=== PATIENT | female | born 1995 | race Caucasian/White ===

== ENCOUNTER 2018-11-13 18:52 | Inpatient (IN) ==
[2018-11-13] MEDS ORDERED: OXYTOCIN 30 UNITS/500 ML BAG IV PRN (19:28)
--- NOTE | 2018-11-13 19:36 | Obstetrical Progress Note ---
Date of Service November 13, 2018 Subjective Admit Note 23 F P0010 at 39.6 weeks admitted in labor. FHT Cat 1. GBS is negative. Cervix 4/100/-2/membranes bulging/anterior/soft. EFW 7.5 lbs. Patient planning for epidural. Anticipate normal delivery. Results & Data Vital Signs (Past 12 Hours) Vital Signs Temp Pulse Resp BP 11/13/18 19:04 36.5 C 85 20 129/84 11/13/18 19:02 85 129/84
[2018-11-13 20:10] LABS: Hematocrit (blood only) 32.9 % (37-47); Hemoglobin 11.3 g/dL (12.0-16.0); Mean Corpuscular Volume 67.4 fL (80-100); Platelet Count 299 K/uL (130-400); RDW Coefficient of Variation 19.5 % (11.5-14.5); RDW Standard Deviation 47.4 fL (36.4-46.3); Red Blood Count 4.88 M/uL (4.2-5.4); White Blood Count 9.69 K/uL (4.8-10.8)
[2018-11-13 20:15] LABS: Mean Corpuscular Hgb Conc 34.3 g/dL (32-36)
[2018-11-13] MEDS: LACTATED RINGER'S 1,000 ML IV PRN ×2 (20:20→22:31)
--- NOTE | 2018-11-13 21:08 | Anesthesiology Consultation ---
Date of Service November 13, 2018 Assessment & Plan (1) Encounter for pre-operative examination: Chart Review Chart Review: Acceptable Risk for Labor Epidural Consults Requested none ASA ASA2 Proposed Anesthesia Anesthesia Type: Labor Epidural Risk / Benefits Reviewed With: PT / POA / Parent / Guardian, Accepts Plan and Informed Consent Obtained History Height/Weight Height: 5 ft 3 in Weight: 74.843 kg Allergies Allergy/AdvReac Type Severity Reaction Status Date / Time pollen extracts Allergy Sneezing Verified 11/13/18 00:53 Medications Home Medications Medication Instructions Recorded Confirmed Last Taken PNV cmb#95-ferrous fumarate-FA 1 tab PO DAILY 11/13/18 11/13/18 11/13/18 [] ferrous sulfate [iron] 325 mg PO DAILY 11/13/18 11/13/18 11/13/18 Active Medications Generic Name Dose Route Start Last Admin Trade Name Freq PRN Reason Stop Dose Admin Lactated Ringer's 1,000 mls @ 125 mls/hr 11/13/18 19:28 11/13/18 20:20 Lr IV 11/15/18 19:27 999 mls/hr .Q8H PRN Administration L&D Protocol Protocol Past Medical History Medical History No significant past medical history Exercise / Class Metabolic Activity II 4-5 Yardwork/Stairs/Walk up hill Past Surgical History Surgical History No significant past surgical history Past Anesthesia History No Hx of Anesthesia Complications and No Family Hx of Anesthesia Complications History of PONV No Hx of PONV and No Hx of Motion Sickness Social History Smoking Status: Never smoker Hx Alcohol Use: No Hx Substance Use: No Physical Exam Vital Signs Last Vital Signs Temp 97.7 F 11/13/18 19:04 Pulse 85 11/13/18 19:04 Resp 20 11/13/18 19:04 BP 129/84 11/13/18 19:04 ENMT Mouth: no dentition abnormality Thyromental Distance: > or= 3.5 Finger Breadths Mallampati Class: II Neck normal visual inspection Respiratory normal respiratory effort Auscultation: lungs clear to auscultation bilaterally Cardiovascular Rate/Rhythm: regular rate and regular rhythm
[2018-11-13] MEDS ORDERED: ePHEDrine sulfate 50 MG/ML AMP IV PRN (21:10)
[2018-11-13] MEDS ORDERED: ONDANSETRON INJ 2 MG/ML 2 ML VIAL IV PRN (21:10)
[2018-11-13] MEDS ORDERED: NALBUPHINE HCL INJ 10 MG/ML AMP IV PRN (21:10)
[2018-11-13] MEDS ORDERED: LACTATED RINGER'S 1,000 ML IV PRN (21:10)
[2018-11-13] MEDS ORDERED: NALOXONE HCL 1 MG in SODIUM CHLORIDE 0.9% 1000ML 1,000 ML IV PRN (21:10)
[2018-11-13] MEDS ORDERED: NALOXONE HCL 0.4 MG/1 ML VIAL/CARP IV PRN (21:10)
[2018-11-13] MEDS ORDERED: DiphenhydrAMINE HCL 50 MG/ML VIAL IV PRN (21:10)
[2018-11-13] MEDS ORDERED: ePHEDrine sulfate 50 MG/ML AMP ONE (21:11)
[2018-11-13] MEDS ORDERED: BUPIVACAINE 0.25% 30 ML VIAL ONE (21:11)
[2018-11-13] MEDS ORDERED: fentaNYL citrate 100 MCG/2 ML VIAL ONE (21:11)
[2018-11-13] MEDS ORDERED: fentaNYL 2MCG/ML ROPIV 1.25MG/ML 100 ML BAG EPI ONE (21:12)
[2018-11-13] MEDS: fentaNYL 2MCG/ML ROPIV 1.25MG/ML 100 ML BAG EPI PRN (21:34)
--- NOTE | 2018-11-13 23:02 | Obstetrical Progress Note ---
Date of Service November 13, 2018 Subjective no pain now after epidural Physical Exam Constitutional: WD/WN, vitals as above comfortable Genitourinary: Manual OB Exam: + cervical dilation 5 cm, + cervical effacement 100%, + station and + amniotic fluid clear OB Exam Monitor Tracing: + external FHT monitor used, + external uterine monitor used and + category I (AROM with amni hook clear fluid) Results & Data Vital Signs (Past 12 Hours) Vital Signs Temp Pulse Resp BP Pulse Ox 11/13/18 22:58 68 96 11/13/18 22:53 77 97 11/13/18 22:48 78 97 11/13/18 22:46 81 121/76 11/13/18 22:43 79 97 11/13/18 22:38 71 97 11/13/18 22:33 77 96 11/13/18 22:32 81 111/72 11/13/18 22:28 84 96 11/13/18 22:23 74 97 11/13/18 22:18 78 97 11/13/18 22:16 82 118/79 11/13/18 22:13 74 98 11/13/18 22:08 76 98 11/13/18 22:03 81 97 11/13/18 22:02 82 119/76 11/13/18 21:58 72 97 11/13/18 21:53 83 98 11/13/18 21:48 80 98 11/13/18 21:46 71 118/78 11/13/18 21:44 88 115/78 11/13/18 21:43 81 96 11/13/18 21:42 82 115/78 11/13/18 21:40 106 H 116/73 11/13/18 21:38 90 108/70 97 11/13/18 21:36 85 106/60 11/13/18 21:34 85 111/65 11/13/18 21:33 82 97 11/13/18 21:28 74 97 11/13/18 21:23 82 98 11/13/18 21:18 87 97 11/13/18 19:04 36.5 C 85 20 129/84 11/13/18 19:02 85 129/84
[2018-11-14] MEDS: fentaNYL 2MCG/ML ROPIV 1.25MG/ML 100 ML BAG EPI PRN ×2 (05:23→11:12)
[2018-11-14] MEDS: LACTATED RINGER'S 1,000 ML IV PRN (06:19)
[2018-11-14] MEDS ORDERED: TERBUTALINE SULFATE 1 MG/ML VIAL ONE (07:32)
--- NOTE | 2018-11-14 08:05 | Labor Progress Brief Note ---
Date of Service November 14, 2018 VE: 10 cm/100/+1 FHR: variables with loss of tracing during exam Position changed done' IVF and oxygen given Terbutaline given SQ scalp electrode placed Pt in knee -chest position FHR is now back to baseline nadir continue to monitor pt and fetus Results & Data Vital Signs (Past 12 Hours) Vital Signs Temp Pulse Resp BP Pulse Ox 11/14/18 08:01 115 H 92 11/14/18 07:58 108 H 100 11/14/18 07:54 114 H 93 11/14/18 07:53 116 H 98 11/14/18 07:48 111 H 93 11/14/18 07:46 123 H 141/63 H 11/14/18 07:43 109 H 98 11/14/18 07:38 106 H 99 11/14/18 07:33 104 H 98 11/14/18 07:32 120 H 160/88 H 11/14/18 07:28 97 H 100 11/14/18 07:26 85 94 11/14/18 07:23 76 97 11/14/18 07:20 82 93 11/14/18 07:18 72 99 11/14/18 07:17 73 113/78 11/14/18 07:13 76 98 11/14/18 07:08 66 98 11/14/18 07:03 78 99 11/14/18 07:02 36.8 C 73 18 116/77 11/14/18 06:58 74 98 11/14/18 06:53 78 99 11/14/18 06:51 78 93 11/14/18 06:48 67 99 11/14/18 06:47 72 120/80 11/14/18 06:43 80 98 11/14/18 06:38 77 98 11/14/18 06:33 73 97 11/14/18 06:31 68 112/76 11/14/18 06:28 75 97 11/14/18 06:23 66 98 11/14/18 06:18 71 98 11/14/18 06:16 66 112/74 11/14/18 06:13 72 99 11/14/18 06:08 62 98 11/14/18 06:03 67 99 11/14/18 06:01 73 110/70 11/14/18 05:58 77 99 11/14/18 05:53 73 98 05 05:48 65 98 05 05:46 66 110/69 05 05:43 76 99 05 05:38 67 99 05 05:33 72 99 05 05:32 66 116/82 05 05:28 73 98 05 05:23 75 98 05 05:18 69 99 05 05:16 78 124/68 05 05:13 84 100 05 05:09 82 92 05 05:08 87 96 05 05:03 70 99 05 05:01 36.8 C 75 18 120/73 05 04:58 66 99 05 04:53 63 99 11/14/18 04:48 68 99 05 04:43 76 98 11/14/18 04:38 62 98 05 04:33 61 98 11/14/18 04:32 60 108/72 05 04:28 69 98 11/14/18 04:23 56 L 98 11/14/18 04:18 69 97 05 04:16 58 L 105/71 11/14/18 04:13 68 98 11/14/18 04:08 68 98 11/14/18 04:03 76 98 11/14/18 04:02 65 124/102 H 11/14/18 03:58 61 98 05 03:53 67 99 05 03:48 61 97 11/14/18 03:46 57 L 103/65 05 03:43 56 L 98 05 03:38 58 L 98 05 03:33 62 97 05 03:32 67 106/67 05 03:28 67 97 05 03:23 79 98 05 03:18 72 97 05 03:16 57 L 102/65 05 03:13 66 98 05 03:08 57 L 97 11/14/18 03:03 57 L 98 11/14/18 03:02 54 L 109/73 05 03:00 36.5 C 05/20/19 02:58 70 97 0520/19 02:53 62 98 0520/19 02:48 61 97 0520/ 02:47 51 L 105/67 0520/19 02:43 60 97 0520/ 02:38 70 98 0520/19 02:33 64 98 0520/ 02:31 67 103/73 0520/ 02:28 69 98 20 02:23 57 L 98 0520/ 02:18 67 97 0520/ 02:16 63 105/64 0520/19 02:13 64 98 0520 02:08 70 98 0520 02:03 64 98 11/14/18 02:01 60 106/67 0520/19 01:58 76 98 0520/ 01:53 72 97 0520/ 01:48 73 97 05 01:47 67 95/64 L 11/14/18 01:43 65 97 0520/19 01:38 71 97 0520/19 01:33 61 97 05/20/19 01:31 67 103/64 0520/19 01:28 76 97 0520/19 01:23 83 97 0520/19 01:18 62 97 0520/19 01:17 73 104/68 0520/19 01:13 75 96 0520/19 01:08 78 97 0520/19 01:03 78 96 0520/19 01:02 57 L 102/61 0520/19 00:58 68 96 05/20/19 00:53 71 97 05/20/19 00:48 87 96 05/20/19 00:46 36.7 C 78 18 105/73 0520/19 00:43 79 96 05/20/19 00:38 63 97 05/20/19 00:33 68 96 05/20/19 00:31 64 106/68 05/20/19 00:28 81 97 05/20/19 00:23 82 97 05/20/19 00:18 80 107/72 96 0520/19 00:13 77 97 0520/19 00:08 75 97 05/20/19 00:03 75 97 05/ 00:02 75 115/73 05//19 23:58 76 97 05/19 23:53 75 97 05/19 23:48 60 97 0519 23:47 61 117/75 05/19 23:43 77 97 05/ 23:38 69 97 05/19 23:33 78 97 05 23:31 80 113/70 0519 23:28 76 96 05 23:23 81 97 05/19 23:18 83 97 05/ 23:16 77 114/69 05/19 23:13 84 97 05 23:08 74 96 05 23:03 79 97 05 23:02 36.6 C 73 18 117/75 05 22:58 68 96 05 22:53 77 97 05 22:48 78 97 05 22:46 81 121/76 05 22:43 79 97 0519 22:38 71 97 05 22:33 77 96 0519 22:32 81 111/72 05 22:28 84 96 05 22:23 74 97 05 22:18 78 97 0519 22:16 82 118/79 05 22:13 74 98 05 22:08 76 98 05 22:03 81 97 05 22:02 82 119/76 0519 21:58 72 97 0519 21:53 83 98 0519 21:48 80 98 05//19 21:46 71 118/78 0519 21:44 88 115/78 0519 21:43 81 96 0519 21:42 82 115/78 05/19 21:40 106 H 116/73 0519 21:38 90 108/70 97 05//19 21:36 85 106/60 0519/19 21:34 85 111/65 05/19 21:33 82 97 0519 21:28 74 97 05//19 21:23 82 98 11/13/18 21:18 87 97
[2018-11-14] MEDS ORDERED: BENZOCAINE 20% AER SPR 82.5 GM CAN EXT PRN (13:04)
[2018-11-14] MEDS ORDERED: OXYTOCIN 30 UNITS/500 ML BAG IV PRN (13:04)
[2018-11-14] MEDS ORDERED: HYDROCORTISONE ACETATE 25 MG SUPP PR PRN (13:04)
[2018-11-14] MEDS ORDERED: ACETAMINOPHEN 325 MG TAB PO PRN (13:04)
[2018-11-14] MEDS ORDERED: BISACODYL 10 MG SUPP PR PRN (13:04)
[2018-11-14] MEDS ORDERED: SUPERCREAM 0.870% 15 GM JAR EXT PRN (13:04)
[2018-11-14] MEDS ORDERED: DIPHTHERIA/TETANUS/PERTUSSIS 0.5 ML SYR/VIAL IM ONE (13:04)
[2018-11-14] MEDS ORDERED: miSOPROStol 200 MCG TAB PR ONE (13:04)
--- NOTE | 2018-11-14 13:04 | Labor Progress Brief Note ---
Results & Data Vital Signs (Past 12 Hours) Vital Signs Temp Pulse Resp BP Pulse Ox 11/14/18 13:01 105 H 112/75 11/14/18 13:00 122 H 116/67 11/14/18 12:55 103 H 134/81 11/14/18 12:50 114 H 135/74 11/14/18 12:45 116 H 131/83 89 L 11/14/18 12:43 100 H 64 L 11/14/18 12:40 106 H 93 11/14/18 12:38 96 H 100 11/14/18 12:34 88 91 11/14/18 12:33 101 H 100 11/14/18 12:30 127 H 116/69 11/14/18 12:29 92 H 93 11/14/18 12:28 90 93 11/14/18 12:23 97 H 100 11/14/18 12:18 114 H 100 11/14/18 12:13 88 100 11/14/18 12:11 106 H 142/72 H 11/14/18 12:10 101 H 93 11/14/18 12:08 104 H 79 L 11/14/18 12:05 122 H 116/65 86 L 11/14/18 12:03 107 H 100 11/14/18 12:00 37.0 C 84 18 135/63 11/14/18 11:58 85 97 11/14/18 11:57 103 H 128/66 11/14/18 11:53 91 H 97 11/14/18 11:51 96 H 114/78 11/14/18 11:48 86 100 11/14/18 11:47 83 91 11/14/18 11:45 81 106/70 11/14/18 11:43 92 H 90 11/14/18 11:42 99 H 89 L 11/14/18 11:39 77 88/51 L 11/14/18 11:38 79 100 11/14/18 11:35 75 86/52 L 11/14/18 11:33 76 100 11/14/18 11:29 77 94/52 L 11/14/18 11:28 86 100 11/14/18 11:24 74 91/54 L 11/14/18 11:23 69 100 11/14/18 11:20 75 91/51 L 11/14/18 11:18 95 H 100 05/20/19 11:14 74 93/54 L 05/20/19 11:13 74 100 05/20/19 11:09 93 H 97/57 L 05/20/19 11:08 77 100 05/20/19 11:05 88 93/60 L 05/20/19 11:03 82 100 05/20/19 11:01 84 91 05/20/19 11:00 87 115/70 05/20/19 10:58 106 H 100 05/20/19 10:54 92 H 125/75 05/20/19 10:53 99 H 100 05/20/19 10:50 97 H 121/75 05/20/19 10:48 92 H 100 05/20/19 10:44 105 H 114/76 05/20/19 10:43 94 H 100 05/20/19 10:39 93 H 113/73 05/20/19 10:38 94 H 100 05/20/19 10:36 89 112/70 05/20/19 10:33 94 H 100 05/20/19 10:31 85 116/67 05/20/19 10:30 96 H 91 05/20/19 10:28 96 H 99 05/20/19 10:25 36.5 C 96 H 18 104/66 05/20/19 10:23 96 H 100 05/20/19 10:21 87 112/69 05/20/19 10:18 91 H 100 05/20/19 10:16 96 H 112/66 05/20/19 10:14 100 H 92 05/20/19 10:13 96 H 100 05/20/19 10:09 93 H 112/64 05/20/19 10:08 88 100 05/20/19 10:06 90 110/67 05/20/19 10:03 88 100 05/20/19 10:00 96 H 109/71 05/20/19 09:58 91 H 100 05/20/19 09:55 98 H 108/69 05/20/19 09:53 92 H 100 05/20/19 09:51 92 H 111/70 05/20/19 09:50 106 H 91 05/20/19 09:48 99 H 100 05/20/19 09:44 92 H 95/50 L 05/20/19 09:43 94 H 100 05/20/19 09:41 93 H 99/53 L 11/14/18 09:40 92 H 99/52 L 05 09:38 89 100 05 09:34 90 103/52 L 11/14/18 09:33 95 H 99/50 L 100 11/14/18 09:29 98 H 105/59 L 11/14/18 09:28 94 H 104/57 L 100 11/14/18 09:24 90 97/52 L 11/14/18 09:23 96 H 100 11/14/18 09:21 92 H 98/54 L 11/14/18 09:18 91 H 100 11/14/18 09:16 91 H 114/66 11/14/18 09:14 92 H 113/66 11/14/18 09:13 94 H 100 11/14/18 09:10 88 120/71 11/14/18 09:09 94 H 89 L 11/14/18 09:08 93 H 98 11/14/18 09:03 94 H 100 11/14/18 09:01 132/89 05 08:58 104 H 100 11/14/18 08:53 98 H 99 11/14/18 08:52 100 H 91 11/14/18 08:48 92 H 100 11/14/18 08:46 96 H 126/84 11/14/18 08:43 100 H 100 05 08:38 107 H 100 05 08:33 100 H 99 05 08:32 97 H 117/73 05 08:28 100 H 100 11/14/18 08:23 87 99 05 08:18 98 H 99 05 08:17 99 H 113/71 05 08:13 95 H 99 05 08:08 82 100 05 08:04 103 H 132/78 05 08:03 104 H 100 05 08:01 115 H 92 05 07:58 108 H 100 05 07:54 114 H 93 0520 07:53 116 H 98 05 07:48 111 H 93 11/14/18 07:46 123 H 141/63 H 05/20/19 07:43 109 H 98 05/20/19 07:38 106 H 99 05/20/19 07:33 104 H 98 05/20/19 07:32 120 H 160/88 H 05/20/19 07:28 97 H 100 05/20/19 07:26 85 94 05/20/19 07:23 76 97 05/20/19 07:20 82 93 05/20/19 07:18 72 99 05/20/19 07:17 73 113/78 05/20/19 07:13 76 98 05/20/19 07:08 66 98 05/20/19 07:03 78 99 05/20/19 07:02 36.8 C 73 18 116/77 05/20/19 06:58 74 98 05/20/19 06:53 78 99 05/20/19 06:51 78 93 05/20/19 06:48 67 99 05/20/19 06:47 72 120/80 05/20/19 06:43 80 98 05/20/19 06:38 77 98 05/20/19 06:33 73 97 05/20/19 06:31 68 112/76 05/20/19 06:28 75 97 05/20/19 06:23 66 98 05/20/19 06:18 71 98 05/20/19 06:16 66 112/74 05/20/19 06:13 72 99 05/20/19 06:08 62 98 05/20/19 06:03 67 99 05/20/19 06:01 73 110/70 05/20/19 05:58 77 99 05/20/19 05:53 73 98 05/20/19 05:48 65 98 05/20/19 05:46 66 110/69 05/20/19 05:43 76 99 05/20/19 05:38 67 99 05/20/19 05:33 72 99 05/20/19 05:32 66 116/82 05/20/19 05:28 73 98 05/20/19 05:23 75 98 05/20/19 05:18 69 99 05/20/19 05:16 78 124/68 05/20/19 05:13 84 100 05/20/19 05:09 82 92 05/20/19 05:08 87 96 05/20/19 05:03 70 99 05/20/19 05:01 36.8 C 75 18 120/73 11/14/18 04:58 66 99 11/14/18 04:53 63 99 11/14/18 04:48 68 99 11/14/18 04:43 76 98 11/14/18 04:38 62 98 11/14/18 04:33 61 98 11/14/18 04:32 60 108/72 11/14/18 04:28 69 98 11/14/18 04:23 56 L 98 11/14/18 04:18 69 97 11/14/18 04:16 58 L 105/71 11/14/18 04:13 68 98 11/14/18 04:08 68 98 11/14/18 04:03 76 98 11/14/18 04:02 65 124/102 H 11/14/18 03:58 61 98 11/14/18 03:53 67 99 11/14/18 03:48 61 97 11/14/18 03:46 57 L 103/65 11/14/18 03:43 56 L 98 11/14/18 03:38 58 L 98 11/14/18 03:33 62 97 11/14/18 03:32 67 106/67 11/14/18 03:28 67 97 11/14/18 03:23 79 98 11/14/18 03:18 72 97 11/14/18 03:16 57 L 102/65 11/14/18 03:13 66 98 11/14/18 03:08 57 L 97 11/14/18 03:03 57 L 98 11/14/18 03:02 54 L 109/73 11/14/18 03:00 36.5 C 11/14/18 02:58 70 97 11/14/18 02:53 62 98 11/14/18 02:48 61 97 11/14/18 02:47 51 L 105/67 11/14/18 02:43 60 97 11/14/18 02:38 70 98 11/14/18 02:33 64 98 11/14/18 02:31 67 103/73 11/14/18 02:28 69 98 11/14/18 02:23 57 L 98 11/14/18 02:18 67 97 11/14/18 02:16 63 105/64 11/14/18 02:13 64 98 11/14/18 02:08 70 98 05/ 02:03 64 98 05/20 02:01 60 106/67 0520 01:58 76 98 05 01:53 72 97 05 01:48 73 97 05 01:47 67 95/64 L 05 01:43 65 97 05 01:38 71 97 05 01:33 61 97 05 01:31 67 103/64 05 01:28 76 97 05 01:23 83 97 05 01:18 62 97 05 01:17 73 104/68 05 01:13 75 96 05 01:08 78 97 05 01:03 78 96
[2018-11-14] MEDS ORDERED: miSOPROStol 200 MCG TAB ONE ×2 (13:11→13:13)
[2018-11-14] MEDS: IBUPROFEN 600 MG TAB PO PRN ×2 (13:45→19:11)
[2018-11-14 13:55] LABS: Base Excess Cord Arterial Bld -8.6 mEq/L (-9-1.8); CO2 Cord Arterial Blood 54 mmHg (39.1-73.5); HCO3 Cord Arterial Blood 20 mmol/L (19.7-28.5); PO2 Cord Arterial Blood 13.5 % (4.1-31.7); pH Cord Arterial Blood 7.19 (7.1-7.38)
--- NOTE | 2018-11-14 13:58 | Anesthesia Procedure Note ---
Date of Service November 14, 2018 Anesthesia Post Epidural Note Vital Signs Vital Signs: Temp Pulse Resp BP Pulse Ox 11/14/18 13:39 106 H 158/88 H 11/14/18 13:36 100 H 159/81 H 11/14/18 13:29 100 H 161/69 H 11/14/18 13:10 120 H 115/60 11/14/18 13:05 92 H 118/70 11/14/18 13:01 105 H 112/75 11/14/18 13:00 37.3 C 122 H 18 116/67 11/14/18 12:55 103 H 134/81 11/14/18 12:50 114 H 135/74 11/14/18 12:45 116 H 131/83 89 L 11/14/18 12:43 100 H 64 L 11/14/18 12:40 106 H 93 11/14/18 12:38 96 H 100 11/14/18 12:34 88 91 11/14/18 12:33 101 H 100 11/14/18 12:30 127 H 116/69 11/14/18 12:29 92 H 93 11/14/18 12:28 90 93 11/14/18 12:23 97 H 100 11/14/18 12:18 114 H 100 11/14/18 12:13 88 100 11/14/18 12:11 106 H 142/72 H 11/14/18 12:10 101 H 93 11/14/18 12:08 104 H 79 L 11/14/18 12:05 122 H 116/65 86 L 11/14/18 12:03 107 H 100 11/14/18 12:00 37.0 C 84 18 135/63 11/14/18 11:58 85 97 11/14/18 11:57 103 H 128/66 11/14/18 11:53 91 H 97 11/14/18 11:51 96 H 114/78 11/14/18 11:48 86 100 11/14/18 11:47 83 91 11/14/18 11:45 81 106/70 11/14/18 11:43 92 H 90 11/14/18 11:42 99 H 89 L 11/14/18 11:39 77 88/51 L 11/14/18 11:38 79 100 11/14/18 11:35 75 86/52 L 05/20/19 11:33 76 100 05/20/19 11:29 77 94/52 L 05/20/19 11:28 86 100 05/20/19 11:24 74 91/54 L 05/20/19 11:23 69 100 05/20/19 11:20 75 91/51 L 05/20/19 11:18 95 H 100 05/20/19 11:14 74 93/54 L 0520/ 11:13 74 100 05/20/ 11:09 93 H 97/57 L 0520/ 11:08 77 100 05/20 11:05 88 93/60 L 0520/ 11:03 82 100 05/20/ 11:01 84 91 05/20/ 11:00 87 115/70 05/20/ 10:58 106 H 100 05/20/19 10:54 92 H 125/75 05/20/19 10:53 99 H 100 05/20/19 10:50 97 H 121/75 05/20/19 10:48 92 H 100 05/20/19 10:44 105 H 114/76 05/20/19 10:43 94 H 100 05/20/19 10:39 93 H 113/73 05/20/19 10:38 94 H 100 05/20/19 10:36 89 112/70 05/20/19 10:33 94 H 100 05/20/19 10:31 85 116/67 05/20/19 10:30 96 H 91 05/20/19 10:28 96 H 99 05/20/19 10:25 36.5 C 96 H 18 104/66 05/20/19 10:23 96 H 100 05/20/19 10:21 87 112/69 05/20/19 10:18 91 H 100 05/20/19 10:16 96 H 112/66 05/20/19 10:14 100 H 92 05/20/19 10:13 96 H 100 05/20/19 10:09 93 H 112/64 05/20/19 10:08 88 100 05/20/19 10:06 90 110/67 05/20/19 10:03 88 100 05/20/19 10:00 96 H 109/71 05/20/19 09:58 91 H 100 05/20/19 09:55 98 H 108/69 05/20/19 09:53 92 H 100 11/14/18 09:51 92 H 111/70 11/14/18 09:50 106 H 91 11/14/18 09:48 99 H 100 11/14/18 09:44 92 H 95/50 L 11/14/18 09:43 94 H 100 11/14/18 09:41 93 H 99/53 L 11/14/18 09:40 92 H 99/52 L 11/14/18 09:38 89 100 11/14/18 09:34 90 103/52 L 11/14/18 09:33 95 H 99/50 L 100 11/14/18 09:29 98 H 105/59 L 11/14/18 09:28 94 H 104/57 L 100 11/14/18 09:24 90 97/52 L 11/14/18 09:23 96 H 100 11/14/18 09:21 92 H 98/54 L 11/14/18 09:18 91 H 100 11/14/18 09:16 91 H 114/66 11/14/18 09:14 92 H 113/66 11/14/18 09:13 94 H 100 11/14/18 09:10 88 120/71 11/14/18 09:09 94 H 89 L 11/14/18 09:08 93 H 98 11/14/18 09:03 94 H 100 11/14/18 09:01 132/89 11/14/18 08:58 104 H 100 11/14/18 08:53 98 H 99 11/14/18 08:52 100 H 91 11/14/18 08:48 92 H 100 11/14/18 08:46 96 H 126/84 05 08:43 100 H 100 05 08:38 107 H 100 05 08:33 100 H 99 11/14/18 08:32 97 H 117/73 05 08:28 100 H 100 05 08:23 87 99 05 08:18 98 H 99 11/14/18 08:17 99 H 113/71 05 08:13 95 H 99 11/14/18 08:08 82 100 05 08:04 103 H 132/78 05 08:03 104 H 100 05/20/19 08:01 115 H 92 05/20/19 07:58 108 H 100 05/20/19 07:54 114 H 93 05/20/19 07:53 116 H 98 05/20/19 07:48 111 H 93 05/20/19 07:46 123 H 141/63 H 0520/19 07:43 109 H 98 05/20/19 07:38 106 H 99 05/20/19 07:33 104 H 98 05/20/19 07:32 120 H 160/88 H 0520/19 07:28 97 H 100 05/20/19 07:26 85 94 05/20/19 07:23 76 97 05/20/19 07:20 82 93 05/20/19 07:18 72 99 05/20/19 07:17 73 113/78 05/20/19 07:13 76 98 05/20/19 07:08 66 98 05/20/19 07:03 78 99 05/20/19 07:02 36.8 C 73 18 116/77 05/20/19 06:58 74 98 05/20/19 06:53 78 99 05/20/19 06:51 78 93 05/20/19 06:48 67 99 05/20/19 06:47 72 120/80 05/20/19 06:43 80 98 05/20/19 06:38 77 98 05/20/19 06:33 73 97 05/20/19 06:31 68 112/76 05/20/19 06:28 75 97 05/20/19 06:23 66 98 05/20/19 06:18 71 98 05/20/19 06:16 66 112/74 05/20/19 06:13 72 99 05/20/19 06:08 62 98 05/20/19 06:03 67 99 05/20/19 06:01 73 110/70 05/20/19 05:58 77 99 05/20/19 05:53 73 98 05/20/19 05:48 65 98 05/20/19 05:46 66 110/69 05/20/19 05:43 76 99 05/20/19 05:38 67 99 05/20/19 05:33 72 99 05/20/19 05:32 66 116/82 05/20/19 05:28 73 98 05/20/19 05:23 75 98 05 05:18 69 99 05 05:16 78 124/68 05 05:13 84 100 11/14/18 05:09 82 92 05 05:08 87 96 11/14/18 05:03 70 99 05 05:01 36.8 C 75 18 120/73 11/14/18 04:58 66 99 11/14/18 04:53 63 99 11/14/18 04:48 68 99 11/14/18 04:43 76 98 11/14/18 04:38 62 98 11/14/18 04:33 61 98 05 04:32 60 108/72 11/14/18 04:28 69 98 05 04:23 56 L 98 11/14/18 04:18 69 97 11/14/18 04:16 58 L 105/71 11/14/18 04:13 68 98 11/14/18 04:08 68 98 11/14/18 04:03 76 98 11/14/18 04:02 65 124/102 H 11/14/18 03:58 61 98 11/14/18 03:53 67 99 11/14/18 03:48 61 97 11/14/18 03:46 57 L 103/65 11/14/18 03:43 56 L 98 11/14/18 03:38 58 L 98 11/14/18 03:33 62 97 11/14/18 03:32 67 106/67 11/14/18 03:28 67 97 11/14/18 03:23 79 98 11/14/18 03:18 72 97 11/14/18 03:16 57 L 102/65 11/14/18 03:13 66 98 11/14/18 03:08 57 L 97 11/14/18 03:03 57 L 98 11/14/18 03:02 54 L 109/73 11/14/18 03:00 36.5 C 11/14/18 02:58 70 97 11/14/18 02:53 62 98 05 02:48 61 97 11/14/18 02:47 51 L 105/67 11/14/18 02:43 60 97 11/14/18 02:38 70 98 05/20/19 02:33 64 98 05/20/19 02:31 67 103/73 05/20/19 02:28 69 98 05/20/19 02:23 57 L 98 05/20/19 02:18 67 97 05/20/19 02:16 63 105/64 05/20/19 02:13 64 98 05/20/19 02:08 70 98 05/20/19 02:03 64 98 05/20/19 02:01 60 106/67 0520/19 01:58 76 98 05/20/19 01:53 72 97 05/20/19 01:48 73 97 05/20/19 01:47 67 95/64 L 05/20/19 01:43 65 97 05/20/19 01:38 71 97 05/20/19 01:33 61 97 05/20/19 01:31 67 103/64 05/20/19 01:28 76 97 05/20/19 01:23 83 97 0520/19 01:18 62 97 0520/19 01:17 73 104/68 05/20/19 01:13 75 96 05/20/19 01:08 78 97 05/20/19 01:03 78 96 05/20/19 01:02 57 L 102/61 0520/19 00:58 68 96 05/20/19 00:53 71 97 05/20/19 00:48 87 96 05/20/19 00:46 36.7 C 78 18 105/73 05/20/19 00:43 79 96 05/20/19 00:38 63 97 05/20/19 00:33 68 96 05/20/19 00:31 64 106/68 05/20/19 00:28 81 97 05/20/19 00:23 82 97 05/20/19 00:18 80 107/72 96 05/20/19 00:13 77 97 05/20/19 00:08 75 97 05/20/19 00:03 75 97 05/20/19 00:02 75 115/73 05/19/19 23:58 76 97 05/19/19 23:53 75 97 05/19/19 23:48 60 97 05/19/19 23:47 61 117/75 05/19/19 23:43 77 97 05/19/19 23:38 69 97 05/19/19 23:33 78 97 11/13/18 23:31 80 113/70 11/13/18 23:28 76 96 11/13/18 23:23 81 97 11/13/18 23:18 83 97 11/13/18 23:16 77 114/69 11/13/18 23:13 84 97 11/13/18 23:08 74 96 11/13/18 23:03 79 97 11/13/18 23:02 36.6 C 73 18 117/75 11/13/18 22:58 68 96 11/13/18 22:53 77 97 11/13/18 22:48 78 97 11/13/18 22:46 81 121/76 11/13/18 22:43 79 97 11/13/18 22:38 71 97 11/13/18 22:33 77 96 11/13/18 22:32 81 111/72 11/13/18 22:28 84 96 11/13/18 22:23 74 97 11/13/18 22:18 78 97 11/13/18 22:16 82 118/79 11/13/18 22:13 74 98 11/13/18 22:08 76 98 11/13/18 22:03 81 97 11/13/18 22:02 82 119/76 11/13/18 21:58 72 97 11/13/18 21:53 83 98 11/13/18 21:48 80 98 11/13/18 21:46 71 118/78 11/13/18 21:44 88 115/78 11/13/18 21:43 81 96 11/13/18 21:42 82 115/78 11/13/18 21:40 106 H 116/73 11/13/18 21:38 90 108/70 97 11/13/18 21:36 85 106/60 11/13/18 21:34 85 111/65 11/13/18 21:33 82 97 11/13/18 21:28 74 97 11/13/18 21:23 82 98 11/13/18 21:18 87 97 11/13/18 19:04 36.5 C 85 20 129/84 11/13/18 19:02 85 129/84 Notes Mental Status: alert / awake / arousable and participated in evaluation Nausea / Vomiting: adequately controlled Pain: adequately controlled Airway Patency, RR, SpO2: stable & adequate BP & HR: stable & adequate Hydration State: stable & adequate Neuraxial Anesthesia: was administered and sensory block is resolving Anesthetic Complications: no major complications apparent and Pt Satisfied with anesthetic care Epidural: Removed without complications and With tip intact
[2018-11-14 13:59] LABS: Base Excess Cord Venous Blood -8.9 mEq/L (-7.7-1.9); Cord Venous Blood HCO3 18 mmol/L (18.4-26.8); Cord Venous Blood PCO2 40 mmHg (30.4-57.2); Cord Venous Blood PO2 27 mmHg (14.1-43.3); Cord Venous Blood pH 7.26 (7.20-7.44); O2 Saturation Cord Venous Bld 60.7 % (<68)
[2018-11-14] MEDS: OXYCODONE/ACETAMINOPHEN 5mg/325mg TAB PO PRN ×2 (14:37→19:11)
[2018-11-14] MEDS ORDERED: GENTAMICIN CONSULT ACTIVE PRN (17:38)
[2018-11-14] MEDS ORDERED: AMPICILLIN 2,000 MG in SODIUM CHLOR 0.9% AD-VAN 100 ML IV ONE (18:15)
[2018-11-14] MEDS ORDERED: GENTAMICIN SULFATE 300 MG in DEXTROSE 5% 100 ML IV ONE (18:15)
[2018-11-14 18:21] LABS: Hemoglobin 10.7 g/dL (12.0-16.0); Mean Corpuscular Volume 68.2 fL (80-100); Platelet Count 241 K/uL (130-400); RDW Coefficient of Variation 19.6 % (11.5-14.5); RDW Standard Deviation 47.4 fL (36.4-46.3); Red Blood Count 4.69 M/uL (4.2-5.4); White Blood Count 18.17 K/uL (4.8-10.8)
[2018-11-14 18:46] LABS: Albumin Level 2.2 gm/dl (3.4-5.0); BUN Creatinine Ratio 13.6 (10-20); Calcium 9.5 mg/dl (8.5-10.1); Creatinine Clr Calc Pharmacy 83.3 ml/min; Est GFR (African American) 90.7; Est GFR (Non-African American) 78.2; Potassium 3.6 mmol/L (3.5-5.1)
[2018-11-14 18:49] LABS: Albumin Globulin Ratio 0.6 (0.9-2); Bilirubin,Total 0.6 mg/dl (0.2-1); Globulin 3.8 gm/dl (2.5-4.0)
[2018-11-14 18:55] LABS: Eosinophils # (auto) 0.02 K/uL (0-0.5); Eosinophils % (auto) 0.1 %; Immature Granulocytes # (auto) 0.06 K/uL (0.00-0.02); Immature Granulocytes % (auto) 0.3 %; Lymphocytes % (auto) 3.3 %; Mean Corpuscular Hgb Conc 33.4 g/dL (32-36); Microcytosis Present; Monocytes # (auto) 0.89 K/uL (0.11-0.59); Monocytes % (auto) 4.9 %; Neutrophils % (auto) 91.4 %
[2018-11-14] MEDS: DOCUSATE SODIUM 100 MG CAP PO SCH (19:12)
--- NOTE | 2018-11-14 22:32 | Operative Report ---
DATE OF OPERATION: 11/14/2018 DELIVERY NOTE The patient delivered a live male in left occiput anterior presentation. There was nuchal cord x3, which was cut and reduced. was delivered, placed on mother's abdomen. Cord was clamped and cut. It was known prior to delivery that meconium was present. was therefore present for delivery. Cord blood and cord gas was obtained. Placenta was spontaneously delivered. Inspection of the placenta shows a meconium stained placenta. Placenta is sent to pathology for pathologic analysis. Inspection of the perineum showed first degree laceration in the left periurethral region which is not bleeding and therefore it has not been repaired. Rest of the vaginal exam is unremarkable. The patient and mother are doing well in recovery. There was good hemostasis. Bleeding was minimal. All instruments were removed from the vagina and accounted for x2 including sponges, retractors. Baby and mother are doing well. As stated above, an EBL was 700 mL I attest to the content of the Intraoperative Record and any orders documented therein. Any exceptions are noted below. [id number]
[2018-11-14] MEDS: AMPICILLIN 1,000 MG in SODIUM CHLOR 0.9% AD-VAN 50 ML IV SCH (23:17)
[2018-11-15 01:17] LABS: Appearance Urine Clear (Clear); Bilirubin Urine Negative (Negative); Blood Urine 2+ (Negative); Color Urine Orange; Epithelial Cell Urine Auto >30 /lpf (0-5); Glucose Urine UA Negative (Negative); Ketones Urine Negative (Negative); Leukocyte Esterase Urine 1+ (Negative); Nitrite Urine Negative (Negative); Protein Urine Negative (Negative); RBC Urine Automated >30 /hpf (0-4); Specific Gravity Urine 1.018 (1.000-1.030); Urobilinogen Urine Negative (Negative); pH Urine 5.5 (4.5-7.5)
[2018-11-15 01:29] LABS: Cast Urine Automated 0 /lpf (0-5); Mucus Urine Present (None Prsent)
[2018-11-15 01:32] LABS: Bacteria Urine Automated 1+ (Negative); Calcium Oxalate Crystals Urine Present (None Prsent)
[2018-11-15] MEDS: IBUPROFEN 600 MG TAB PO PRN ×4 (03:29→20:25)
[2018-11-15] MEDS: AMPICILLIN 1,000 MG in SODIUM CHLOR 0.9% AD-VAN 50 ML IV SCH ×3 (06:44→17:38)
--- NOTE | 2018-11-15 08:21 | Obstetrical Progress Note ---
Date of Service November 15, 2018 Subjective doing well Physical Exam Constitutional: WD/WN, vitals as above comfortable Abdomen soft non-tender neg edema neg Jerman's tent d/c in AM Results & Data Vital Signs (Past 12 Hours) Vital Signs Temp Pulse Pulse Resp BP Pulse Ox 11/15/18 07:59 36.5 C 77 16 93/52 L 99 11/15/18 03:30 36.3 C L 82 18 97/62 L 98 11/14/18 23:30 36.6 C 91 H 20 99/62 L 98 11/14/18 22:30 36.7 C 11/14/18 21:30 38.1 C H 130 H 22 112/73 97 Laboratory Results Laboratory Results - last 24 hr 11/14/18 11/14/18 11/14/18 12:44 12:44 17:49 WBC 18.17 H RBC 4.69 Hgb 10.7 L Hct 32.0 L MCV 68.2 L MCH 22.8 L MCHC 33.4 RDW Std Deviation 47.4 H RDW Coeff of Sandy 19.6 H Plt Count 241 MPV 10.0 Immature Gran % (Auto) 0.3 Neut % (Auto) 91.4 Lymph % (Auto) 3.3 [place] % (Auto) 4.9 Eos % (Auto) 0.1 Baso % (Auto) 0.0 Immature Gran # (Auto) 0.06 H Neut # (Auto) 16.60 H Lymph # (Auto) 0.60 L [place] # (Auto) 0.89 H Eos # (Auto) 0.02 Baso # (Auto) 0.00 Microcytosis Present Cord ABG pH 7.19 Cord ABG pCO2 54 Cord ABG pO2 13.5 Cord ABG HCO3 20 Cord ABG Base Excess -8.6 Cord ABG O2 Sat < 60.0 Cord VBG pH 7.26 Cord VBG pCO2 40 Cord VBG pO2 27 Cord VBG HCO3 18 L Cord VBG Base Excess -8.9 L Cord VBG O2 Sat 60.7 Barometric Pressure 727.5 727.7 Blood Gas Comments PANIAGUA PANIAGUA Sodium Potassium Chloride Carbon Dioxide Anion Gap BUN Creatinine Est Cr Clr Drug Dosing Est GFR ( Amer) Est GFR (Non-Af Amer) BUN/Creatinine Ratio Glucose Calcium Total Bilirubin AST ALT Alkaline Phosphatase Total Protein Albumin Globulin Albumin/Globulin Ratio Urine Color Urine Appearance Urine pH Ur Specific [place] Urine Protein Urine Glucose (UA) Urine Ketones Urine Blood Urine Nitrite Urine Bilirubin Urine Urobilinogen Ur Leukocyte Esterase Urine WBC (Auto) Urine RBC (Auto) U Hyaline Cast (Auto) U Epithel Cells (Auto) Urine Bacteria (Auto) Ur Renal Epithelial Cell Calcium Oxalate Crystal Urine Mucus 11/14/18 11/15/18 17:49 01:00 WBC RBC Hgb Hct MCV MCH MCHC RDW Std Deviation RDW Coeff of Sandy Plt Count MPV Immature Gran % (Auto) Neut % (Auto) Lymph % (Auto) [place] % (Auto) Eos % (Auto) Baso % (Auto) Immature Gran # (Auto) Neut # (Auto) Lymph # (Auto) [place] # (Auto) Eos # (Auto) Baso # (Auto) Microcytosis Cord ABG pH Cord ABG pCO2 Cord ABG pO2 Cord ABG HCO3 Cord ABG Base Excess Cord ABG O2 Sat Cord VBG pH Cord VBG pCO2 Cord VBG pO2 Cord VBG HCO3 Cord VBG Base Excess Cord VBG O2 Sat Barometric Pressure Blood Gas Comments Sodium 136 Potassium 3.6 Chloride 106 Carbon Dioxide 20 L Anion Gap 10.0 BUN 14 Creatinine 1.00 Est Cr Clr Drug Dosing 83.3 Est GFR ( Amer) 90.7 Est GFR (Non-Af Amer) 78.2 BUN/Creatinine Ratio 13.6 Glucose 106 H Calcium 9.5 Total Bilirubin 0.6 AST 31 ALT 13 Alkaline Phosphatase 164 H Total Protein 6.0 L Albumin 2.2 L Globulin 3.8 Albumin/Globulin Ratio 0.6 L Urine Color [place] Urine Appearance Clear Urine pH 5.5 Ur Specific [place] 1.018 Urine Protein Negative Urine Glucose (UA) Negative Urine Ketones Negative Urine Blood 2+ H Urine Nitrite Negative Urine Bilirubin Negative Urine Urobilinogen Negative Ur Leukocyte Esterase 1+ H Urine WBC (Auto) 10-30 H Urine RBC (Auto) >30 H U Hyaline Cast (Auto) 0 U Epithel Cells (Auto) >30 H Urine Bacteria (Auto) 1+ H Ur Renal Epithelial Cell Not Reportable Calcium Oxalate Crystal Present A Urine Mucus Present A
[2018-11-15 08:29] LABS: Hematocrit (blood only) 29.3 % (37-47); Hemoglobin 10.1 g/dL (12.0-16.0); Mean Corpuscular Hgb Conc 34.5 g/dL (32-36); Mean Corpuscular Volume 67.5 fL (80-100); Platelet Count 233 K/uL (130-400); RDW Coefficient of Variation 19.5 % (11.5-14.5); RDW Standard Deviation 47.5 fL (36.4-46.3); Red Blood Count 4.34 M/uL (4.2-5.4)
[2018-11-15] MEDS: PRENATAL VITAMIN 1 TAB PO SCH (09:05)
[2018-11-15] MEDS: DOCUSATE SODIUM 100 MG CAP PO SCH ×2 (09:05→20:23)
[2018-11-15] MEDS ORDERED: BISACODYL 5 MG TABEC PO SCH (20:00)
[2018-11-16] MEDS: AMPICILLIN 1,000 MG in SODIUM CHLOR 0.9% AD-VAN 50 ML IV SCH (00:11)
[2018-11-16] MEDS: IBUPROFEN 600 MG TAB PO PRN ×2 (04:29→11:47)
[2018-11-16 07:59] LABS: Hematocrit (blood only) 27.8 % (37-47); Hemoglobin 9.2 g/dL (12.0-16.0)
[2018-11-16] MEDS: DOCUSATE SODIUM 100 MG CAP PO SCH (08:28)
[2018-11-16] MEDS: PRENATAL VITAMIN 1 TAB PO SCH (08:29)
--- NOTE | 2018-11-16 09:53 | Obstetrical Progress Note ---
Date of Service November 16, 2018 Physical Exam Physical Exam: abdomen soft and non tender vaginal bleeding scan to moderate ambulating well no calf tenderness cultures are no growth Results & Data Vital Signs (Past 12 Hours) Vital Signs Temp Pulse Resp BP 11/16/18 00:01 36.6 C 53 L 18 112/66
[2018-11-16] MEDS ORDERED: MEASLES, MUMPS & RUBELLA VIRUS VIAL SQ ONE (11:16)
== END 2018-11-16 13:00 | disposition home or self-care (01) | DRG 807 ==
LOC: OPB 18:52 → 4S1 18:55 → 4S2 11-14 17:46

== ENCOUNTER 2019-12-13 18:53 | Inpatient (IN) ==
[2019-12-13] MEDS ORDERED: OXYTOCIN 30 UNITS/500 ML BAG IV PRN ×2 (19:27→20:33)
[2019-12-13 19:52] LABS: Hematocrit (blood only) 33.4 % (37-47); Hemoglobin 10.8 g/dL (12.0-16.0); Mean Corpuscular Hemoglobin 22.6 pg (25-34); Mean Platelet Volume 9.6 fL (7.4-10.4); Platelet Count 285 K/uL (130-400); RDW Coefficient of Variation 20.1 % (11.5-14.5); RDW Standard Deviation 49.6 fL (36.4-46.3); Red Blood Count 4.77 M/uL (4.2-5.4); White Blood Count 10.84 K/uL (4.8-10.8)
[2019-12-13 19:55] LABS: Mean Corpuscular Hgb Conc 32.3 g/dL (32-36)
[2019-12-13] MEDS: LACTATED RINGER'S 1,000 ML IV PRN (20:45)
[2019-12-13] MEDS ORDERED: ePHEDrine sulfate 50 MG/ML AMP ONE (20:47)
[2019-12-13] MEDS ORDERED: BUPIVACAINE 0.25% 30 ML VIAL ONE (20:48)
[2019-12-13] MEDS ORDERED: fentaNYL 2MCG/ML ROPIV 1.25MG/ML 100 ML BAG EPI ONE (20:48)
[2019-12-13] MEDS ORDERED: fentaNYL citrate 100 MCG/2 ML VIAL ONE (20:48)
[2019-12-13] MEDS ORDERED: ePHEDrine sulfate 50 MG/ML AMP IV PRN (20:49)
[2019-12-13] MEDS ORDERED: NALOXONE HCL 1 MG in SODIUM CHLORIDE 0.9% 1000ML 1,000 ML IV PRN (20:49)
[2019-12-13] MEDS ORDERED: DiphenhydrAMINE HCL 50 MG/ML VIAL IV PRN (20:49)
[2019-12-13] MEDS ORDERED: NALBUPHINE HCL INJ 10 MG/ML AMP IV PRN (20:49)
[2019-12-13] MEDS ORDERED: NALOXONE HCL 0.4 MG/1 ML VIAL/CARP IV PRN (20:49)
[2019-12-13] MEDS ORDERED: fentaNYL 2MCG/ML ROPIV 1.25MG/ML 100 ML BAG EPI PRN (20:49)
--- NOTE | 2019-12-13 21:21 | Anesthesiology Consultation ---
Date of Service December 13, 2019 Assessment & Plan Chart Review Chart Review: Acceptable Risk for Labor Epidural Consults Requested none History Height/Weight Height: 5 ft 3 in Weight: 79.832 kg Allergies Allergy/AdvReac Type Severity Reaction Status Date / Time pollen extracts Allergy Sneezing Verified 07/08/19 22:55 Medications Home Medications Medication Instructions Recorded Confirmed Last Taken ferrous sulfate [iron] 0 mg PO DAILY 11/13/18 12/13/19 11/13/18 PNV [id number]-ferrous fumarate-FA 1 tab PO DAILY 07/08/19 12/13/19 12/13/19 [] Active Medications Generic Name Dose Route Start Last Admin Trade Name Freq PRN Reason Stop Dose Admin Lactated Ringer's 1,000 mls @ 125 mls/hr 12/13/19 19:27 12/13/19 20:45 Lr IV 12/15/19 19:26 999 mls/hr .Q8H PRN Administration L&D Protocol Protocol Past Medical History Medical History Anemia Past Family History Family History Mother Cancer breast and another site unknown by pt Asthma Hypertension Father Multiple sclerosis Past Surgical History Surgical History H/O removal of cyst left leg, inner thigh Social History Smoking Status: Never smoker Hx Alcohol Use: No Hx Substance Use: No Physical Exam Vital Signs Last Vital Signs Temp 37 C 12/13/19 19:25 Pulse 93 H 12/13/19 21:18 Resp 18 12/13/19 19:25 BP 113/63 12/13/19 21:18 Pulse Ox 99 12/13/19 21:14 Testing Laboratory Results 12/13/19 19:40
[2019-12-14] MEDS: LACTATED RINGER'S 1,000 ML IV PRN ×2 (00:54→03:11)
[2019-12-14] MEDS ORDERED: DIPHTHERIA/TETANUS/PERTUSSIS 0.5 ML SYR/VIAL IM ONE (03:50)
[2019-12-14] MEDS ORDERED: ACETAMINOPHEN W/CODEINE #3 1 TAB PO PRN (03:50)
[2019-12-14] MEDS ORDERED: OXYCODONE/ACETAMINOPHEN 5mg/325mg TAB PO PRN (03:50)
[2019-12-14] MEDS ORDERED: OXYTOCIN 30 UNITS/500 ML BAG IV PRN (03:50)
[2019-12-14] MEDS ORDERED: SUPERCREAM 0.870% 15 GM JAR EXT PRN (03:50)
[2019-12-14] MEDS ORDERED: HYDROCORTISONE ACETATE 25 MG SUPP PR PRN (03:50)
[2019-12-14] MEDS ORDERED: bisacodyL 10 MG SUPP PR PRN (03:50)
[2019-12-14] MEDS ORDERED: BENZOCAINE 20% AER SPR 82.5 GM CAN EXT PRN (03:50)
--- NOTE | 2019-12-14 04:39 | Operative Report (OR) ---
DATE OF OPERATION: 12/14/2019 The patient is a 24-year-old 3, para 2, 1 spontaneous AB. Blood type is B positive, group B strep negative, was admitted in active labor. On admission, she was about 5+ cm with bulging membranes with contractions. She requested epidural, got fluid loaded, got her epidural, then started Pitocin. Ruptured her membranes at about 6+ cm, fluid was clear. Kept turning up her Pitocin. She developed a good labor pattern. Then eventually we had to turn the Pitocin back a little bit because she had some coupling. Went to full dilatation, pushed out a live male infant via direct occiput anterior position over an intact perineum with about 4 pushes. There was a tight nuchal cord that had to be clamped and cut prior to delivery. Once the cord was cut, shoulders were delivered without difficulty. Suctioned the through the mouth and the nose before delivery of the body. Infant was just slightly limp at , but started to cry and move immediately without stimulation. Apgars deferred to the nurses. Cord blood was taken. With IV Pitocin running, the placenta was removed intact. Inspection of the perineum revealed everything to be intact. There were no lacerations, no bleeding. Hemostasis was good. Estimated blood loss was 200 mL. I attest to the content of the Intraoperative Record and any orders documented therein. Any exception s are noted below.
[2019-12-14] MEDS: IBUPROFEN 600 MG TAB PO PRN ×4 (05:26→21:26)
[2019-12-14] MEDS: DOCUSATE SODIUM 100 MG CAP PO SCH ×2 (07:51→21:25)
[2019-12-14] MEDS: PRENATAL VITAMIN 1 TAB PO SCH (07:51)
[2019-12-14] MEDS: ACETAMINOPHEN 325 MG TAB PO PRN ×3 (07:52→21:25)
--- NOTE | 2019-12-14 10:06 | Anesthesia Procedure Note ---
Date of Service December 14, 2019 Anesthesia Post Epidural Note Vital Signs Vital Signs: Temp Pulse Resp BP Pulse Ox 36.5 C 91 H 18 110/65 96 12/14/19 07:55 12/14/19 07:55 12/14/19 07:55 12/14/19 07:55 12/14/19 07:55 Pain Intensity Abdomen: Pain Intensity: 5 Notes Mental Status: alert / awake / arousable Nausea / Vomiting: adequately controlled Pain: adequately controlled Airway Patency, RR, SpO2: stable & adequate BP & HR: stable & adequate Hydration State: stable & adequate Neuraxial Anesthesia: was administered and sensory block is resolving Anesthetic Complications: no major complications apparent Epidural: Removed without complications and With tip intact
[2019-12-15] MEDS: IBUPROFEN 600 MG TAB PO PRN ×2 (05:42→11:55)
[2019-12-15 06:34] LABS: Hematocrit (blood only) 33.4 % (37-47); Hemoglobin 10.7 g/dL (12.0-16.0); Mean Corpuscular Hemoglobin 22.6 pg (25-34); Mean Corpuscular Volume 70.5 fL (80-100); Mean Platelet Volume 9.6 fL (7.4-10.4); Platelet Count 270 K/uL (130-400); RDW Standard Deviation 50.3 fL (36.4-46.3); Red Blood Count 4.74 M/uL (4.2-5.4); White Blood Count 12.42 K/uL (4.8-10.8)
[2019-12-15] MEDS: DOCUSATE SODIUM 100 MG CAP PO SCH (07:54)
[2019-12-15] MEDS: PRENATAL VITAMIN 1 TAB PO SCH (07:54)
--- NOTE | 2019-12-15 08:26 | Obstetrical Progress Note ---
Date of Service December 15, 2019 Assessment & Plan (1) Normal course: PPD #2 Pt doing well Pt wishes to be discharged disch home with instructions Subjective Ambulation: ambulating normally Voiding: no voiding problems Passing Gas:: Yes Diet Tolerance:: regular diet Lochia:: Small Feeding Type:: breast feeding Review of Systems All systems reviewed & are unremarkable except as noted in HPI & below Physical Exam Constitutional WD/WN, vitals as above well developed and well nourished Eyes PERRL, conjunctivae normal, anicteric sclerae Neck trachea midline, no thyromegaly Respiratory normal respiratory effort, lungs clear to auscultation Auscultation: no crackles, no rales and no wheezes Cardiovascular RRR, no murmur, no edema Gastrointestinal (Abdomen) normal bowel sounds, soft, nontender, no hepatosplenomegaly Uterus is below umbilicus Musculoskeletal no cyanosis or clubbing, extremities motor strength 5/5 Skin no rashes, warm and dry Neurologic patellar DTR's 2+ bilat, sensation intact Psychiatric A+Ox3, euthymic affect Genitourinary normal external appearance Results & Data Vital Signs (Past 12 Hours) Vital Signs Temp Pulse Resp BP Pulse Ox 12/15/19 07:53 36.6 C 74 19 109/73 97 12/14/19 23:05 36.5 C 83 18 109/63 97
[2019-12-15] MEDS: ACETAMINOPHEN 325 MG TAB PO PRN (11:56)
[2019-12-15] MEDS ORDERED: bisacodyL 5 MG TABEC PO SCH (20:00)
== END 2019-12-15 12:40 | disposition home or self-care (01) | DRG 807 ==
LOC: OPB 18:53 → 4S2 18:55 → 4S1 22:53 → 4S2 12-14 06:36

== ENCOUNTER 2023-12-24 08:32 | Inpatient (IN) ==
--- NOTE | 2023-12-24 08:57 | Emergency Department Note ---
Impression & Plan Ureteropelvic junction calculus, Hydronephrosis of right kidney, Acute UTI (urinary tract infection), Right lower quadrant abdominal pain, Leukocytosis ED Provider Note HISTORY OF PRESENT ILLNESS: Patient is a 28-year-old female presenting with right lower quadrant abdominal pain. Patient reports she had some achy pain in her right lower quadrant yesterday but "did not think much of it." She reports that she woke from sleep today with significant pain in her right lower quadrant that radiates into her right back. She has never had surgery before. Describes the pain in her back as a achy pain and the pain on her anterior abdomen as sharp. Reports nausea and a few episodes of vomiting this morning. Her last p.o. intake was 1999 on 12/23/2023. Reports she tried to have a sip of water early this morning but immediately vomited. She denies any dysuria or hematuria. Her last menstrual period ended last week. She has an IUD in place. Denies any chest pain or shortness of breath. No reported fevers. Denies any dysuria or hematuria. Currently rates the pain a 10 out of 10. ROS: as above PHYSICAL EXAM: Constitutional: Patient appears in no acute distress. HENT: Head: Normocephalic and atraumatic. Eyes: EOMI, PERRL Mouth/Throat: Mucous membranes moist. Neck: Trachea midline. Neck supple. Cardiovascular: RRR, No murmurs, rubs or gallops. Intact distal pulses. Pulmonary/Chest: No respiratory distress. Breath sounds clear and equal bilaterally. No wheezes or rales. Abdominal: Abdomen soft, no rebound or guarding. RLQ TTP Musculoskeletal: No edema, tenderness or deformity noted. Skin: Warm and dry. No rash, erythema, pallor or cyanosis Psychiatric: Appropriate mood and affect for situation. Neurological: Alert and keenly responsive. CN II-XII grossly intact, moving all extremities equally and fully. MDM: - Vitals signs stable - History obtained via patient. History as above. - Chronic conditions affecting care: depression - Differential diagnoses include, but are not limited to: appendicitis; diverticulitis; ectopic ; ischemic colitis; ovarian cyst; ovarian torsion; ureteral calculi - Order placed for continuous cardiac monitoring. At this time, monitor showed rate of 58 bpm with normal sinus rhythm, per my interpretation. - External medical records reviewed. History and physical note dated 11/16/2018 was reviewed. Patient was a G2, P0 at the time. - Laboratory workup interpreted by myself showed leukocytosis (WBC 14.79) with left shift; stable electrolytes; normal creatinine; ; normal lipase; negative hCG - UA showed evidence of infection - Patient given IV zosyn for antibiotic coverage - CT abdomen/pelvis with IV contrast showed 4 mm right UPJ calculus resulting in mild to moderate right hydronephrosis. - Discussed case with LEONEL Jay with urology at 11:00 AM. Will review with attending Dr. Wolfe and come evaluate patient. Reports patient may be candidate for stent. - Patient initially given 1L NS, 50 mcg IV fentanyl and 4 mg IV zofran for pain and nausea on arrival. - On reassessment, patient reported that her pain had initially improved but was returning. She is given 4 mg of IV morphine - Patient's pain again improved, but returned. Given 30 mg IV toradol - Discussion was had with case operator about patient's case and need for admission - Hospitalist consulted for admission - Patient admitted to [facility] service for further evaluation and management. ASSESSMENT AND PLAN: Diagnosis: Right lower quadrant abdominal pain; leukocytosis; right ureteropelvic junction calculus; acute UTI; hydronephrosis of right kidney Plan: Admit Past Med/Surg History Problem List (Updated 12/24/23 @ 11:58 by Emelina Barrientos PA-C) Nausea and vomiting Abdominal pain Hydronephrosis of right kidney Ureteropelvic junction calculus Medical History (Updated 12/24/23 @ 11:58 by Emelina Barrientos PA-C) Normal course Encounter for pre-operative examination Anemia Surgical History H/O removal of cyst left leg, inner thigh Family History Mother Cancer breast and another site unknown by pt Asthma Hypertension Father Multiple sclerosis Social History Smoking Status: Never smoker Second Hand Exposure: No; Hx Alcohol Use: No Hx Substance Use: No Preferred Language: Burundian Communication Ability: Effective 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 Beliefs That Will Affect Care: None marital status: Single Current Living Situation: Spouse current occupational status: employed Feels Safe at Home: Yes Assistive Devices: Glasses Allergies Allergies Allergy/AdvReac Type Severity Reaction Status Date / Time pollen extracts Allergy Sneezing Verified 12/24/23 11:23 Home Meds Home Medications Medication Instructions Recorded Confirmed fluoxetine 20 mg capsule 20 mg PO QAM 12/24/23 12/24/23 multivitamin with minerals-folic 1 tab PO QAM 12/24/23 12/24/23 acid 200 mcg chewable tablet (Multivitamin Gummies) Results & Data (ED) Vital Signs Vital Signs - 24 hr 12/24/23 08:37 12/24/23 09:18 12/24/23 09:18 Temperature 36.6 C Temperature Source Temporal Artery Scan Pulse Rate 63 60 Pulse Rate [Apical] 58 L Pulse Rhythm Regular Respiratory Rate 16 22 20 Respiratory Depth Normal Blood Pressure 122/79 Blood Pressure [Left Arm] 111/78 Blood Pressure Mean 93 Blood Pressure Mean [Left Arm] 89 Pulse Oximetry 100 99 100 Oxygen Delivery Method Room Air Room Air Room Air Sepsis Recent Fever Within 48 Hours No Sepsis New/Unexplained Change in Mental Status No Sepsis Action Taken by Nursing No Action Required 12/24/23 09:25 12/24/23 09:45 Temperature 36.5 C Temperature Source Oral Pulse Rate 57 L Pulse Rate [Apical] Pulse Rhythm Respiratory Rate Respiratory Depth Blood Pressure Blood Pressure [Left Arm] Blood Pressure Mean Blood Pressure Mean [Left Arm] Pulse Oximetry Oxygen Delivery Method Sepsis Recent Fever Within 48 Hours Sepsis New/Unexplained Change in Mental Status Sepsis Action Taken by Nursing Laboratory Data 12/24/23 09:06 12/24/23 09:06 Lab Results 12/24/23 12/24/23 Range/Units 09:06 09:18 WBC 14.79 H (4.8-10.8) K/ul RBC 6.15 H (4.20-5.40) M/uL Hgb 13.3 (12.0-16.0) g/dl Hct 41.8 (37.0-47.0) % MCV 68.0 L (80.0-100.0) fL MCH 21.6 L (25.0-34.0) pg MCHC 31.8 L (32.0-36.0) g/dL RDW Std Deviation 47.9 H (36.4-46.3) fL RDW Coeff of Sandy 21.2 H (11.5-14.5) % Plt Count 310 (130-400) K/uL MPV 10.1 (9.4-12.4) fL Immature Gran % (Auto) 0.3 % Neut % (Auto) 78.1 % Lymph % (Auto) 13.9 % [place] % (Auto) 6.5 % Eos % (Auto) 0.7 % Baso % (Auto) 0.5 % Neut # (Auto) 11.54 H (1.40-6.50) K/uL Lymph # (Auto) 2.06 (1.20-3.40) K/uL [place] # (Auto) 0.96 H (0.11-0.59) K/uL Eos # (Auto) 0.10 (0.00-0.50) K/uL Baso # (Auto) 0.08 (0.00-0.20) K/uL Immature Gran # (Auto) 0.05 (0.01-0.20) K/uL Polychromasia 1+ Anisocytosis Present Microcytosis Present Tear Drop Cells 1+ Sodium 140 (136-145) mmol/L Potassium 3.7 (3.5-5.1) mmol/L Chloride 108 H (98-107) mmol/L Carbon Dioxide 21 (21-32) mmol/L Anion Gap 11 (3-11) BUN 16 (6-23) mg/dl Creatinine 1.01 (0.6-1.2) mg/dl Est Cr Clr Drug Dosing 76.7 ml/min Est GFR ( Amer) 86.5 ml/min Est GFR (Non-Af Amer) 74.6 ml/min BUN/Creatinine Ratio 15.8 (10-20) Glucose 106 H (70-99(Fasting)) mg/dl Calcium 9.9 (8.6-10.3) mg/dl Total Bilirubin 0.9 (0.2-1.0) mg/dl AST 22 (13-39) U/L ALT 14 (7-52) U/L Alkaline Phosphatase 63 (34-104) U/L Total Protein 8.4 H (6.0-8.3) gm/dl Albumin 5.0 (3.4-5.0) gm/dl Globulin 3.4 (2.5-4.0) gm/dl Albumin/Globulin Ratio 1.5 (0.9-2) Lipase 35 (11-82) U/L HCG, Qual Negative (Negative) Urine Color Yellow Urine Appearance Turbid A (Clear) Urine pH >= 9.0 H (4.5-7.5) Ur Specific [place] 1.017 (1.000-1.030) Urine Protein Trace H (Negative) Urine Glucose (UA) Negative (Negative) Urine Ketones Negative (Negative) Urine Blood Negative (Negative) Urine Nitrite Negative (Negative) Urine Bilirubin Negative (Negative) Urine Urobilinogen Negative (Negative) Ur Leukocyte Esterase 2+ H (Negative) Urine WBC (Auto) 21-50 H (0-5) /hpf Urine RBC (Auto) 6-10 H (0-2) /hpf U Hyaline Cast (Auto) 0-2 (0-2) /lpf U Epithel Cells (Auto) 11-20 H (0-2) /hpf Urine Bacteria (Auto) 1+ H (None Seen) POC Ur Test NEG (NEG) Administered Medications Discontinued Medications Fentanyl Citrate (Fentanyl Citrate Pf 100 Mcg/2 Ml Vial) 50 mcg IV NOW STA Stop: 12/24/23 08:54 Last Admin: 12/24/23 09:12 Dose: 50 mcg Documented By: WALLY Fentanyl Citrate (Fentanyl Citrate Pf 100 Mcg/2 Ml Vial) 50 mcg IV NOW STA Stop: 12/24/23 10:15 Last Admin: 12/24/23 10:25 Dose: Not Given Documented By: WALLY Sodium Chloride (Nss) 1,000 mls @ 999 mls/hr IV .Q1H1M ONE Stop: 12/24/23 09:53 Last Infusion: 12/24/23 10:06 Dose: Infused Documented By: Admin: 12/24/23 09:06 Dose: 999 mls/hr Documented By: WALLY Piperacillin Sod/Tazobactam Sod (Zosyn) 4.5 gm in 100 mls @ 200 mls/hr IV NOW ONE Stop: 12/24/23 10:12 Last Infusion: 12/24/23 10:28 Dose: Infused Documented By: Admin: 12/24/23 09:52 Dose: 200 mls/hr Documented By: WALLY Ioversol (Optiray 320 100ml) 93 ml IV ONCE ONE Stop: 12/24/23 10:05 Last Admin: 12/24/23 10:04 Dose: 93 ml Documented By: CHIQUITA Ketorolac Tromethamine (Ketorolac 30 Mg/Ml Vial) 30 mg IV NOW ONE Stop: 12/24/23 10:22 Last Admin: 12/24/23 10:25 Dose: 30 mg Documented By: WALLY Morphine Sulfate (Morphine Sulfate 4 Mg/Ml 1 Ml Carp\\Vial) 4 mg IV NOW STA Stop: 12/24/23 09:41 Last Admin: 12/24/23 09:43 Dose: 4 mg Documented By: WALLY Ondansetron HCl (Ondansetron Inj 2 Mg/Ml 2 Ml Vial) 4 mg IV NOW STA Stop: 12/24/23 08:54 Last Admin: 12/24/23 09:12 Dose: 4 mg Documented By: WALLY Imaging Data Radiologist's Impression: Abdomen/Pelvis CT 12/24/23 09:43 CT OF THE ABDOMEN AND PELVIS WITH CONTRAST CLINICAL HISTORY: Right lower quadrant abdominal pain. COMPARISON STUDY: None. TECHNIQUE: Following IV administration of 93 mL of Optiray, axial images of the abdomen and pelvis were obtained from the lung bases to the proximal femurs. Images were reviewed in the axial, sagittal, and coronal planes. IV contrast was administered without complication. Automated exposure control was utilized for the study. A dose lowering technique was utilized adhering to the principles of ALARA. CT DOSE: 788.3 mGy.cm FINDINGS: Lung bases are unremarkable. No pneumatosis, free air or portal venous gas is present. Liver, spleen, adrenal glands and pancreas are unremarkable. A 4 mm right ureteropelvic junction calculus results in mild to moderate right hydronephrosis with delayed nephrogram perinephric and perirenal fluid. Hyperdense foci within the left renal sinus could reflect nonobstructing calculi or excreted contrast. 8 mm hypodense left renal lesion is too small to characterize but favors a cyst. The caliber and wall thickness of small and large bowel are normal. The appendix is normal. Intrauterine device is in place. There is trace fluid within the pelvis. There is no lymphadenopathy. Major vasculature is patent. IMPRESSION: 1. 4 mm right ureteropelvic junction calculus results in mild to moderate right hydronephrosis with delayed nephrogram and perinephric/periureteral fluid. 2. No left hydronephrosis. A few small hyperdense foci within the left renal sinus which could reflect nonobstructing calculi or excreted contrast. ACT 112: Negative or not required by law. Electronically signed by: Sonny Miller M.D. 12/24/2023 10:17 AM Discharge Plan Visit Data Chief Complaint: Abdominal Pain Stated Complaint: RIGHT SIDE ABD PAIN /BACK PAIN ED Provider: Heidi Murguia Discharge Problem: Ureteropelvic junction calculus, Hydronephrosis of right kidney, Acute UTI (urinary tract infection), Right lower quadrant abdominal pain, Leukocytosis Forms Stand Alone Forms: [place] Prescriptions Prescriptions: No Action fluoxetine 20 mg capsule 20 mg PO QAM multivit with min-folic acid [Multivitamin Gummies] 200 mcg Tablet,Chewable 1 tab PO QAM Referrals Referrals: PCP,NO [Primary Care Provider] -
[2023-12-24] MEDS: SODIUM CHLORIDE 0.9% 1,000 ML IV ONE ×2 (09:06→15:46)
[2023-12-24] MEDS: fentaNYL citrate PF 100 MCG/2 ML VIAL IV STA ×2 (09:12→10:25)
[2023-12-24] MEDS: ONDANSETRON INJ 2 MG/ML 2 ML VIAL IV STA ×2 (09:12→15:48)
[2023-12-24 09:26] LABS: Basophils # (auto) 0.08 K/uL (0.00-0.20); Basophils % (auto) 0.5 %; Eosinophils % (auto) 0.7 %; Hematocrit (blood only) 41.8 % (37.0-47.0); Hemoglobin 13.3 g/dl (12.0-16.0); Immature Granulocytes # (auto) 0.05 K/uL (0.01-0.20); Immature Granulocytes % (auto) 0.3 %; Lymphocytes # (auto) 2.06 K/uL (1.20-3.40); Lymphocytes % (auto) 13.9 %; Mean Corpuscular Hemoglobin 21.6 pg (25.0-34.0); Mean Corpuscular Hgb Conc 31.8 g/dL (32.0-36.0); Monocytes # (auto) 0.96 K/uL (0.11-0.59); Monocytes % (auto) 6.5 %; Neutrophils # (auto) 11.54 K/uL (1.40-6.50); Neutrophils % (auto) 78.1 %; RDW Coefficient of Variation 21.2 % (11.5-14.5); RDW Standard Deviation 47.9 fL (36.4-46.3); Red Blood Count 6.15 M/uL (4.20-5.40); White Blood Count 14.79 K/ul (4.8-10.8)
[2023-12-24 09:33] LABS: Appearance Urine Turbid (Clear); Bacteria Urine Automated 1+ (None Seen); Bilirubin Urine Negative (Negative); Blood Urine Negative (Negative); Cast Urine Automated 0-2 /lpf (0-2); Color Urine Yellow; Glucose Urine UA Negative (Negative); Ketones Urine Negative (Negative); Leukocyte Esterase Urine 2+ (Negative); Nitrite Urine Negative (Negative); Protein Urine Trace (Negative); Specific Gravity Urine 1.017 (1.000-1.030); Urobilinogen Urine Negative (Negative); WBC Urine Automated 21-50 /hpf (0-5); pH Urine >= 9.0 (4.5-7.5)
[2023-12-24 09:42] LABS: Albumin Globulin Ratio 1.5 (0.9-2); BUN Creatinine Ratio 15.8 (10-20); Bilirubin,Total 0.9 mg/dl (0.2-1.0); Calcium 9.9 mg/dl (8.6-10.3); Creatinine Clr Calc Pharmacy 76.7 ml/min; Est GFR (African American) 86.5 ml/min; Est GFR (Non-African American) 74.6 ml/min; Globulin 3.4 gm/dl (2.5-4.0); Potassium 3.7 mmol/L (3.5-5.1); Total Protein 8.4 gm/dl (6.0-8.3)
[2023-12-24] MEDS: MoRPHine SULFATE 4 MG/ML 1 ML CARP\\VIAL IV STA (09:43)
[2023-12-24] MEDS: PIPERACILLIN/TAZOBACTAM 4.5 GM/100 ML BAG IV ONE (09:52)
[2023-12-24] MEDS: OPTIRAY 320 100ml IV ONE (10:04)
[2023-12-24 10:07] LABS: Pregnancy Test, Serum Negative (Negative)
--- NOTE | 2023-12-24 10:19 | CT Scan Report ---
CT OF THE ABDOMEN AND PELVIS WITH CONTRAST CLINICAL HISTORY: Right lower quadrant abdominal pain. COMPARISON STUDY: None. TECHNIQUE: Following IV administration of 93 mL of Optiray, axial images of the abdomen and pelvis we re obtained from the lung bases to the proximal femurs. Images were reviewed in the axial, sagittal, and coronal planes. IV contrast was administered without complication. Automated exposure control wa s utilized for the study. A dose lowering technique was utilized adhering to the principles of ALARA . CT DOSE: 788.3 mGy.cm FINDINGS: Lung bases are unremarkable. No pneumatosis, free air or portal venous gas is present. Live r, spleen, adrenal glands and pancreas are unremarkable. A 4 mm right ureteropelvic junction calculus results in mild to moderate right hydronephrosis with delayed nephrogram perinephric and perirenal f luid. Hyperdense foci within the left renal sinus could reflect nonobstructing calculi or excreted co ntrast. 8 mm hypodense left renal lesion is too small to characterize but favors a cyst. The caliber and wall thickness of small and large bowel are normal. The appendix is normal. Intrauterine device i s in place. There is trace fluid within the pelvis. There is no lymphadenopathy. Major vasculature is patent. IMPRESSION: 1. 4 mm right ureteropelvic junction calculus results in mild to moderate right hydronephrosis with d elayed nephrogram and perinephric/periureteral fluid. 2. No left hydronephrosis. A few small hyperdense foci within the left renal sinus which could reflec t nonobstructing calculi or excreted contrast. ACT 112: Negative or not required by law. Electronically signed by: Sonny Miller M.D. 12/24/2023 10:17 AM
--- OUTSIDE RECORDS SUMMARY | 2023-12-24 10:21 | External Medical Summary | Summary of Care ---
Author Name Unknown Organization [facility] Address [address] [place] [address] Phone [phone] Care Team Providers Care Automotive Internet Sales Manager Name Role Phone Saul Carreon MD Primary Care Provider [phone] Reason for Visit * Reason Comments Follow Up Pt being seen for a 2 month F/U apt, for anxiety meds. Encounter Details Date Type Department Care Team (Late st Contact Info) Description 07/30/2023 10:00 AM EST Office Visit [facility] [address] [place] [address] Rajiv Prescott CRNP [address] [place] [address] PMS (premenstrual syndrome)*; High blood triglycerides; PORTER (generalized anxiety disorder) Allergies Active Allergy Reactions Criticality Noted Date Comments Pollen 10/19/2016 documented as of this encounter (statuses as of 07/30/2023) Medications Medication Sig Dispensed Refills Start Date End Date Status Mirena (52 MG) 20 MCG/DAY Intrauterine Intrauterine Device (Levonorgestrel) Insert 1 Each into uterus once. 0 Active Multivitamin Gummies Womens Oral Tablet Chewable Take 2 Tablets by mouth daily. 0 Active Airborne Gummies Oral Tablet Chewable Take 2 Tablets by mouth daily. 0 Active Foago-7-fpyb Ethyl Esters 1 GM Oral Capsule (Lovaza)Indication s:High blood triglycerides Take 2 Capsules by mouth in the morning and 2 Capsules before bedtime. 120 Capsule 1 07/08/2023 Active FLUoxetine HCl 20 MG Oral Capsule (PROzac)Indication s:PMS (premenstrual syndrome) Take 1 Capsule by mouth in the morning. 60 Capsule 2 07/30/2023 Active FLUoxetine HCl 10 MG Oral Capsule (PROzac)Indication s:PMS (premenstrual syndrome) Take 1 Capsule by mouth in the morning. 30 Capsule 11 05/31/2023 Discontinued documented as of this encounter (statuses as of 07/30/2023) Active Problems Problem Noted Date Diagnosed Date COVID-19 04/22/2020 Thalassemia, beta 05/16/2019 documented as of this encounter (statuses as of 07/30/2023) Resolved Problems Problem Noted Date Diagnosed Date Resolved Date Supervision of other normal 05/16/2019 12/14/2019 Overview: Problem Action Taken Date entered Entered by Date resolved education Already working with [facility]. Will continue with during 05/16/2019 Christina Montanez RN 05/16/2019 Problem Action Taken Date entered Entered by Date resolved Current needs or questions Patient denies having any current needs or questions 06/13/2019 Christina Montanez RN 06/13/2019 nutrition Attending [facility] Due date letter given 05/16/2019 Christina Montanez RN 05/16/2019 Problem Action Taken Date entered Entered by Date resolved Current needs or questions Patient denies having any current needs or questions 08/03/2019 Sandrita Marquez RN 08/03/2019 Problem Action Taken Date entered Entered by Date resolved Current needs or questions Patient denies having any current needs or questions 09/01/2019 Christina Montanez RN 09/01/2019 Problem Action Taken Date entered Entered by Date resolved Current needs or questions Patient denies having any current needs or questions 10/05/2019 Sandrita Marquez RN 10/05/2019 Problem Action Taken Date entered Entered by Date resolved 3rd trimester education Reviewed w/pt 10/05/2019 Sandrita Marquez RN 10/05/2019 Problem Action Taken Date entered Entered by Date resolved Current needs or questions Patient denies having any current needs or questions 11/21/2019 Sandrita Marquez RN 11/21/2019 Problem Action Taken Date entered Entered by Date resolved Current needs or questions Patient denies having any current needs or questions 11/27/2019 Sandrita Marquez RN 11/27/2019 Problem Action Taken Date entered Entered by Date resolved Current needs or questions Patient denies having any current needs or questions 12/05/2019 Sandrita Marquez RN 12/05/2019 Problem Action Taken Date entered Entered by Date resolved Labor signs Aware of after hours number to call/ when to call 12/13/2019 Christina Montanez RN 12/13/2019 Short interval between pregn ancies complicating , antepartum 05/16/201912/13 Overview: Delivered in October 2018 10/05/19 administered tdap. Annamarie Dorman LPN Hemoglobinopathy 11/07/2018 11/14/2018 Overview: Elevated Hemoglobin F Heme appt. Antepartum anemia complicating 09/30/2018 04/22/2020 Overview: Taking iron supplements. - Elisa Rangel CNM Need for rubella vaccination 04/07/2018 11/14/2018 Overview: - originally tested negative, now tested negative. Will need vaccination . Elisa Rangel CNM Encounter for supervision of other normal , unspecified trimester 03/29/2018 019 Overview: Problem Action Taken Date entered Entered by Date resolved [facility]-discussed and pamphlet given-will think about it 03/29/2018 Nneka Elizalde RN 03/29/18 Nutrition Discussed WIC and food stamps-due date letters given 03/29/2018 Nneka Elizalde RN 03/29/18 Classes Discussed importance with first -pamphlet given 03/29/2018 Nneka Elizalde RN 03/29/18 Problem Action Taken Date entered Entered by Date resolved Current needs or questions Patient denies having any current needs or questions 05/25/2018 Christina Montanez RN 05/25/2018 Problem Action Taken Date entered Entered by Date resolved Current needs or questions Patient denies having any current needs or questions 06/29/2018 Sandrita Marquez RN 06/29/2018 Problem Action Taken Date entered Entered by Date resolved [facility] Pt states she may now be interested in the [facility] program. Refferal form completed and faxed. 08/05/2018 Nneka Elizalde RN 08/05/18 Breast Feeding Pt expressed desire to breast feed-may just pump and bottle feed. Breast pump form given to pt-will review and bring back to next appt with which pump she desires. 08/05/2018 Nneka Elizalde RN 08/05/18 Classes Discussed importance-pt states she just hasn't picked a date to go-has pamphlet and instructions on how to register for a class. Encouraged to do so. 08/05/2018 Nneka Elizalde RN 08/05/18 Problem Action Taken Date entered Entered by Date resolved 3rd trimester education completed 08/26/2018 Christina Montanez RN 08/26/2018 Problem Action Taken Date entered Entered by Date resolved Breast feeding Breast pump picked by pt-form completed and faxed to [facility] 09/09/2018 Nneka Elizalde RN 09/09/18 Problem Action Taken Date entered Entered by Date resolved 32 week education completed Getting ready. Has baby shower this 09/30/2018 Christina Montanez RN 09/30/2018 Problem Action Taken Date entered Entered by Date resolved Current needs or questions Patient denies having any current needs or questions 10/14/2018 Nneka Elizalde RN 10/14/18 Problem Action Taken Date entered Entered by Date resolved Current needs or questions Patient denies having any current needs or questions 10/28/2018 Nneka Elizalde RN 10/28/18 Problem Action Taken Date entered Entered by Date resolved Current needs or questions Patient denies having any current needs or questions 11/03/2018 Sandrita Marquez RN 11/03/2018 documented as of this encounter (statuses as of 07/30/2023) Immunizations Name Administration Dates Next Due COVID-19 mRNA, LNP-s, No Pre serve, 2-Dose Series ([employer]) 07/02/2021,09/14/2020,08/24/2020 HPV Vaccine, 4-Valent 03/28/2006,11/26/2005,04/0 06/2005 MMR - Measles/Mumps/Rubella Vaccine 11/16/2018 PPD 05/13/2021,09/18/2015,09/06/2015 Seasonal Influenza, PF, 6 M & above, IM , (FluLaval or Fluzone) 05/13/2021,04/22/2020,06/13/2019, 0 18 TDAP (age 10 and older)(Boostrix) 10/05/2019,12/2016 documented as of this encounter Social History Tobacco Use Types Packs/Day Years Used Date Smoking Tobacco: Never Smokeless Tobacco: Never Tobacco Cessation:Counseling Given: Not Answered Alcohol Use Standard Drinks/Week Comments Not Currently 0 (1 standard drink = 0.6 oz pure alcohol) social, wine-none since + UPT PHQ-2 Answer Date Recorded PHQ Adult Total Score 7 05/31/2023 Hunger Vital Sign Answer Date Recorded Within the past 12 months, y ou worried that your food would run out before you got the money to buy more. Never true 05/31/20 23 Within the past 12 months, t he food you bought just didn't last and you didn't have money to get more. Never true 05/31/2023 [place] Depression Scale Answer Date Recorded [place] Depression Scale Score 11 04/26/2020 The thought of harming myself has occurred to me . (Pt Reported) 04/26/2020 Sex and Gender Information Value Date Recorded Sex Assigned at Female 05/31/2023 9:50 AM EST Gender Identity Female 05/31/2023 9:50 AM EST Sexual Orientation Straight 05/31/2023 9: 50 AM EST Job Start Date Occupation Industry Not on file Not on file Not on file documented as of this encounter Last Filed Vital Signs Vital Sign Reading Time Taken Comments Blood Pressure 106/78 07/30/2023 10:01 AM EST Pulse 81 07/30/2023 10:01 AM EST Temperature 36.4 C (97.5 F) 07/30/2023 10:[address] Respiratory Rate 16 07/30/2023 10:01 AM EST Oxygen Saturation - - Inhaled Oxygen Concentration - - Weight 69.9 kg (154 lb) 07/30/2023 10:01 AM EST Height - - Body Mass Index 27.11 04/21/2023 2:38 PM EDT documented in this encounter Progress Notes * Rajiv Prescott CRNP - 07/30/2023 10:09 AM EST Images from the original note were not included. Follow up Family Medicine Visit History of Present Illness Kristyn Rich is a very pleasant 27 year old female with PMH listed below presenting with f/u. Elevated cholesterol, triglyceride up to 722. 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 She has been taking fish oil, and triglyceride remarkably improved to 170s. 10mg of prozac only during luteal phase for irritability and binge eating. She didn't notice any improvement but no side effects. Some insomnia. Getting in November 2023, has 2 kids, added stress factors. 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 Comment: Mirena 01/2020 Other Topics Concern Not on file Social History Narrative Not on file Social Determinants of Health Financial Resource Strain: Not on file Food Insecurity: No Food Insecurity (05/31/2023) Hunger Vital Sign Worried About Running Out of Food in the Last Year: Never true Ran Out of Food in the Last Year: Never true Transportation Needs: Not on file Physical Activity: Not on file Stress: Not on file Social Connections: Not on file Intimate Partner Violence: Not on file Housing Stability: Not on file PMH: Past Medical History: Diagnosis Date Thalassemia, beta (HCC) Past Surgical History: Procedure Laterality Date MISCELLANEOUS ORDER ([facility] ONLY) Left 2014 removal benign cyst from thigh Outpatient Medications Marked as Taking for the 07/30/23 encounter (Office Visit) with Rajiv Prescott CRNP Medication Sig Wqonq-3-sugo Ethyl Esters 1 GM Oral Capsule (Lovaza) Take 2 Capsules by mouth in the morning and 2 Capsules before bedtime. Airborne Gummies Oral Tablet Chewable Take 2 Tablets by mouth daily. FLUoxetine HCl 10 MG Oral Capsule (PROzac) Take 1 Capsule by mouth in the morning. Multivitamin Gummies Womens Oral Tablet Chewable Take 2 Tablets by mouth daily. Mirena (52 MG) 20 MCG/DAY Intrauterine Intrauterine Device (Levonorgestrel) Insert 1 Each into uterus once. Review of patient's allergies indicates: Allergen Reactions Pollen Most Recent Immunizations Administered Date(s) Administered COVID-19 mRNA, LNP-s, No Preserve, 2-Dose Series ([employer]) 07/02/2021 HPV Vaccine, 4-Valent 03/28/2006 MMR - Measles/Mumps/Rubella Vaccine 11/16/2018 PPD 05/13/2021 Seasonal Influenza, PF, 6 M & above, IM , (FluLaval or Fluzone) 05/13/2021 TDAP (age 10 and older)(Boostrix) 10/05/2019 Review of Systems: Physical Exam BP 106/78 | Pulse 81 | Temp 36.4 C (97.5 F) (Tympanic) | Resp 16 | Wt 69.9 kg (154 lb) | BMI 27.11 kg/m | BSA 1.77 m Physical Exam Constitutional: Appearance: Normal appearance. HENT: Head: Normocephalic. Pulmonary: Effort: No respiratory distress. Musculoskeletal: Cervical back: Neck supple. Skin: General: Skin is warm. Neurological: Mental Status: She is alert and oriented to person, place, and time. Psychiatric: Mood and Affect: Mood normal. Assessment and Plan 1. PMS (premenstrual syndrome) Will plan to continue prozac daily next 6-8 weeks If not improving her symptoms, will consider switch to zoloft -FLUoxetine HCl 20 MG Oral Capsule (PROzac); Take 1 Capsule by mouth in the morning. Dispense: 60 Capsule; Refill: 2 2. High blood triglycerides Cont lovaza Modify diet 3. PORTER (generalized anxiety disorder) +situational as well Wrap-Up I have advised the patient to call our office with any worsening or new symptoms. I spent a total of 20-29 minutes (exact time 25 mins) on the date of service in preparation, delivery, and documentation of the care provided to Kristyn Rich excluding any time spent in the performance of separately billed services. Rajiv Prescott, MSN, [facility] documented in this encounter Plan of Treatment Upcoming Encounters Date Type Department Care Team (Late st Contact Info) Description 10/04/2023 9:20 AM EDT Telemedicine [facility] [address] [place] [address] Rajiv Prescott CRNP [address] [place] [address] 01/17/2024 10:30 AM EDT Office Visit Gynecology/Obstetrics [facility] [address] [place] [address] Clarisse Cordova CRNP [address] [place] [address] Health Maintenance Due Date Last Done Comments Hepatitis B (1 of 3 - 3-dose series) 1993 COVID-19 Vaccine ( - 2022- season) 2023 07/02/2021, 09/14/2020, 08/24/2020 Influenza Vaccine (FLU shot) (#1) 2023 05/13/2021, 04/22/2020, 06/13/2019, Additional history exists Depression Screening 05/31/2024 05/31/2023 Pap Smear 01/09/2026 01/09/2023, 08/11/2019, 10/19/2016, Additional history exists IUD 7-Year 02/18/2027 02/19/2020 DTaP,Tdap,and Td Vaccines (3 - Td or Tdap) 10/04/2029 10/05/2019, 10/02/2016 GARDASIL-HPV IMMUNIZATION SERIES Completed 03/28/2006, 11/26/2005, 2005 Hepatitis C Screening Discontinued MENINGOCOCCAL (MENACTRA/MENVEO) Aged Out No longer eligible based on patient's age to complete this topic Pneumococcal Vaccine: Pediatrics (0 to 5 Years) and At-Risk Patients (6 to 64 Years) Aged Out No longer eligible based on patient's age to complete this topic documented as of this encounter Medical Devices Not on filedocumented as of this encounter Visit Diagnoses Diagnosis PMS (premenstrual syndrome)- Primary Premenstrual tension syndromes High blood triglycerides Pure hyperglyceridemia PORTER (generalized anxiety disorder) Generalized anxiety disorder documented in this encounter Care Teams Automotive Internet Sales Manager Relationship Specialty Start Date End Date Saul Carreon MD [address] [place] [place] [address] PCP - General Family Medicine 04/22/20 documented as of this encounter"
--- OUTSIDE RECORDS SUMMARY | 2023-12-24 10:21 | External Medical Summary | Summary of Care ---
Author Name Unknown Organization [facility] Address [address] [place] [address] Phone [phone] Care Team Providers Care Project Development Leader Name Role Phone Devon Sierra MD Primary Care Provider [phone] Reason for Visit * Reason Onset Date Comments Medication Refill 08/31/2023 Encounter Details Date Type Department Care Team (Late st Contact Info) Description 08/31/2023 Refill Family Practice [facility] [address] [place] [address] Rajiv Prescott CRNP [address] [place] [address] High blood triglycerides; PMS (premenstrual syndrome) Allergies Active Allergy Reactions Criticality Noted Date Comments Pollen 10/19/2016 documented as of this encounter (statuses as of 09/02/2023) Medications Medication Sig Dispensed Refills Start Date End Date Status Mirena (52 MG) 20 MCG/DAY Intrauterine Intrauterine Device (Levonorgestrel) Insert 1 Each into uterus once. 0 Active Multivitamin Gummies Womens Oral Tablet Chewable Take 2 Tablets by mouth daily. 0 Active Airborne Gummies Oral Tablet Chewable Take 2 Tablets by mouth daily. 0 Active Vxllz-2-weyy Ethyl Esters 1 GM Oral Capsule (Lovaza)Indications :High blood triglycerides Take 2 Capsules by mouth in the morning and 2 Capsules before bedtime. 120 Capsule 1 09/02/2023 Active FLUoxetine HCl 20 MG Oral Capsule (PROzac)Indications :PMS (premenstrual syndrome) Take 1 Capsule by mouth in the morning. 60 Capsule 2 09/02/2023 Active Zhsgn-1-hvja Ethyl Esters 1 GM Oral Capsule (Lovaza)Indications :High blood triglycerides Take 2 Capsules by mouth in the morning and 2 Capsules before bedtime. 120 Capsule 1 07/08/2023 4 Discontinue d(Refill) FLUoxetine HCl 20 MG Oral Capsule (PROzac)Indications :PMS (premenstrual syndrome) Take 1 Capsule by mouth in the morning. 60 Capsule 2 07/30/2023 4 Discontinue d(Refill) documented as of this encounter (statuses as of 09/02/2023) Active Problems Problem Noted Date Diagnosed Date COVID-19 04/22/2020 Thalassemia, beta 05/16/2019 documented as of this encounter (statuses as of 09/02/2023) Resolved Problems Problem Noted Date Diagnosed Date [...] 06/13/2019 Christina Montanez RN 06/13/2019 nutrition Attending [facility] Due date letter given 05/16/2019 Christina Montanez [...] picked by pt-form completed and faxed to [facility] 09/09/2018 Nneka Elizalde RN 09/09/18 Problem Action [...] as of this encounter (statuses as of 09/02/2023) Immunizations Name Administration Dates Next Due COVID-19 mRNA, LNP-s, No Pre serve, 2-Dose Series ([facility]) 07/02/2021,09/14/2020,08/24/2020 HPV Vaccine, 4-Valent 03/28/2006,11/26/2005,04/0 06/2005 MMR - Measles/Mumps/Rubella Vaccine 11/16/2018 PPD 05/13/2021,09/18/2015,09/06/2015 Seasonal Influenza, PF, 6 M & above, IM , (FluLaval or Fluzone) 05/13/2021,04/22/2020,06/13/2019, 0 18 TDAP (age 10 and older)(Boostrix) 10/05/2019,12/2016 documented as of this encounter Social History Tobacco Use Types Packs/Day Years Used Date Smoking Tobacco: Never Smokeless Tobacco: Never Alcohol Use Standard Drinks/Week Comments Not Currently [...] money to get more. Never true 05/31/2023 [place] Depression Scale Answer Date Recorded [place] Depression Scale Score 11 04/26/2020 The thought [...] on file documented as of this encounter Miscellaneous Notes * Telephone Encounter - Devon Sierra MD - 09/02/2023 12:05 PM ESTSigned Prescriptions: Disp Refills Evdwf-2-wect Ethyl Esters 1 GM Oral Capsul*120 Ca*1 Sig: Take 2 Capsules by mouth in the morning and 2 Capsules before bedtime. Authorizing Provider: DEVON SIERRA FLUoxetine HCl 20 MG Oral Capsule (PROzac) 60 Cap*2 Sig: Take 1 Capsule by mouth in the morning. Authorizing Provider: DEVON SIERRA * Telephone Encounter - Hailey Willard LPN - 09/02/2023 7:13 AM ESTPending Prescriptions: Disp Refills Bdrks-2-uhqr Ethyl Esters 1 GM Oral Capsul*120 Ca*1 Sig: Take 2 Capsules by mouth in the morning and 2 Capsules before bedtime. FLUoxetine HCl 20 MG Oral Capsule (PROzac) 60 Cap*2 Sig: Take 1 Capsule by mouth in the morning. * Telephone Encounter - Hailey Willard LPN - 09/02/2023 7:12 AM EST Did you pend patient's preferred pharmacy and medication before forwarding?yes Pharmacy: [id number] [facility] Pending Prescriptions: Disp Refills Sswwn-8-ulpo Ethyl Esters 1 GM Oral Capsu*120 Ca*1 Sig: Take 2 Capsules by mouth in the morning and 2 Capsules before bedtime. FLUoxetine HCl 20 MG Oral Capsule (PROzac)60 Cap*2 Sig: Take 1 Capsule by mouth in the morning. Last Visit: 07/30/2023 (in office), Visit date not found (telemedicine) Next Visit: 10/04/2023 If no future appointments scheduled, and last appointment is greater than a year ago, please schedule patient for a follow-up appointment Last date the medication was ordered: Is this request for a controlled substance?No Urine Drug Screen:No results found for this or any previous visit. Patient Phone Numbers Labs: Lab Results Component Value Date/Time CREAT 0.9 03/06/2019 04:18 PM POTASSIUM 4.2 03/06/2019 04:18 PM TSH 1.86 10/31/2018 01:12 PM LDLCALC 98 05/31/2023 10:16 AM LDLDIRECT 50 04/20/2023 09:44 AM ALT 14 03/06/2019 04:18 PM * Telephone Encounter - Tom Weiss - 09/01/2023 5:02 PM ESTPending Prescriptions: Disp Refills Iqwon-4-ectz Ethyl Esters 1 GM Oral Capsul*120 Ca*1 Sig: Take 2Capsules by mouth in the morning and 2 Capsules before bedtime. FLUoxetine HCl 20 MG Oral Capsule (PROzac) 60 Cap*2 Sig: Take 1 Capsule by mouth in the morning. documented in this encounter Plan of Treatment Upcoming Encounters Date Type Department Care Team (Late st Contact Info) Description 10/04/2023 9:20 AM EDT Telemedicine Family Practice [facility] [address] [place] [address] Rajiv Prescott CRNP [address] [place] [address] 01/17/2024 10:30 AM EDT Office Visit Gynecology/Obstetrics [facility] [address] [place] [address] Clarisse Cordova CRNP [address] [place] [address] Health Maintenance Due Date Last Done Comments Hepatitis B (1 of 3 - 19+ 3-dose series) 2012 COVID-19 Vaccine (4 - 2023-24 season) 2023 07/02/2021, 09/14/2020, 08/24/2020 Influenza Vaccine [...] as of this encounter Visit Diagnoses Diagnosis High blood triglycerides Pure hyperglyceridemia PMS (premenstrual syndrome) Premenstrual tension syndromes documented in this encounter Care Teams Project Development Leader Relationship Specialty Start Date End Date Devon Sierra MD [address] [place] [address] PCP - General Family Medicine 04/22/20 documented as of this encounter
--- OUTSIDE RECORDS SUMMARY | 2023-12-24 10:21 | External Medical Summary | Summary of Care ---
Author Name Unknown Organization [facility] Address [address] [place] [address] Phone [phone] Care Team Providers Care Color Depositing Machine Tender Name Role Phone Saul Carreon MD Primary Care Provider [phone] Reason for Visit * Reason Comments Follow Up 2 month follow up - prozac Encounter Details Date Type Department Care Team (Late st Contact Info) Description 10/04/2023 9:20 AM EDT Telemedicine Family Practice [facility] [address] [place] [address] Rajiv Prescott CRNP [address] [facility] [place] [address] PMS (premenstrual syndrome)*; Allergic rhinitis, unspecified seasonality, unspecified trigger Allergies Active Allergy Reactions Criticality Noted Date Comments Pollen 10/19/2016 documented as of this encounter (statuses as of 10/04/2023) Medications Medication Sig Dispensed Refills Start Date End Date Status Mirena (52 MG) 20 MCG/DAY Intrauterine Intrauterine Device (Levonorgestrel) Insert 1 Each into uterus once. 0 Active Multivitamin Gummies Womens Oral Tablet Chewable Take 2 Tablets by mouth daily. 0 Active Airborne Gummies Oral Tablet Chewable Take 2 Tablets by mouth daily. 0 Active Xrpnb-5-bxxn Ethyl Esters 1 GM Oral Capsule (Lovaza)Indications :High blood triglycerides Take 2 Capsules by mouth in the morning and 2 Capsules before bedtime. 120 Capsule 1 09/02/2023 Active FLUoxetine HCl 20 MG Oral Capsule (PROzac)Indications :PMS (premenstrual syndrome) Take 1 Capsule by mouth in the morning. 90 Capsule 3 10/04/2023 Active FLUoxetine HCl 20 MG Oral Capsule (PROzac)Indications :PMS (premenstrual syndrome) Take 1 Capsule by mouth in the morning. 60 Capsule 2 09/02/2023 4 Discontinue d(Refill) documented as of this encounter (statuses as of 10/04/2023) Active Problems Problem Noted Date Diagnosed Date COVID-19 04/22/2020 Thalassemia, beta 05/16/2019 documented as of this encounter (statuses as of 10/04/2023) Resolved Problems Problem Noted Date Diagnosed Date [...] 06/13/2019 Christina Montanez RN 06/13/2019 nutrition Attending [facility] Due date letter given 05/16/2019 Christina Montanez [...] as of this encounter (statuses as of 10/04/2023) Immunizations Name Administration Dates Next Due COVID-19 mRNA, LNP-s, No Pre serve, 2-Dose Series ([employer]) 07/02/2021,09/14/2020,08/24/2020 HPV Vaccine, 4-Valent 03/28/2006,11/26/2005,040 06/2005 MMR - Measles/Mumps/Rubella Vaccine 11/16/2018 PPD [...] money to get more. Never true 05/31/2023 [place] Depression Scale Answer Date Recorded [place] Depression Scale Score 11 04/26/2020 The thought [...] on file documented as of this encounter Progress Notes * Rajiv Prescott CRNP - 10/04/2023 9:28 AM EDT Images from the original note were not included. Follow up Family Medicine Visit History of Present Illness Kristyn Rich is a very pleasant 28 year old female with PMH listed below presenting with Follow Up (2 month follow up - prozac). Patient location: HOME. I was in a hospital or clinic location. After connecting through televideo,patient was verified with two unique identifiers. 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 Methods to assure confidentiality were taken. Patient acknowledged consent and understanding of pr ivacy and security of the Telemedicine visit. The patient agreed to participate. F/u on prozac Going really well - Helped her with generalized mood, luteal phase for irritability and binge eating Nasal congestion, just bought Sinex severe ultra fine mist Nasacort, but hasn't use it yet Social History Socioeconomic History Marital status: Single [...] Surgical History: Procedure Laterality Date MISCELLANEOUS ORDER ([facility] ONLY) Left 2014 removal benign cyst from thigh Outpatient Medications Marked as Taking for the 10/04/23 encounter (Telemedicine) with Rajiv Prescott CRNP Medication Sig FLUoxetine HCl 20 MG Oral Capsule (PROzac) Take 1 Capsule by mouth in the morning. Xkhuf-5-xqvz Ethyl Esters 1 GM Oral Capsule (Lovaza) Take 2 Capsules by mouth in the morning and 2 Capsules before bedtime. Airborne Gummies Oral Tablet Chewable Take 2 Tablets by mouth daily. Multivitamin Gummies Womens Oral Tablet Chewable Take 2 Tablets by mouth daily. Mirena (52 MG) 20 MCG/DAY Intrauterine Intrauterine Device (Levonorgestrel) Insert 1 Each into uterus once. Review of patient's allergies indicates: Allergen Reactions Pollen Most Recent Immunizations Administered Date(s) Administered COVID-19 mRNA, LNP-s, No Preserve, 2-Dose Series ([employer]) 07/02/2021 HPV Vaccine, 4-Valent 03/28/2006 MMR - Measles/Mumps/Rubella Vaccine 11/16/2018 PPD 05/13/2021 Seasonal Influenza, PF, 6 M & above, IM , (FluLaval or Fluzone) 05/13/2021 TDAP (age 10 and older)(Boostrix) 10/05/2019 Review of Systems: Physical Exam There were no vitals taken for this visit. Assessment and Plan 1. PMS (premenstrual syndrome) Cont prozac 20mg - FLUoxetine HCl 20 MG Oral Capsule (PROzac); Take 1 Capsule by mouth in the morning. Dispense: 90 Capsule; Refill: 3 2. Allergic rhinitis, unspecified seasonality, unspecified trigger Recommend saline irrigation like neti pot, Continue nasacort daily Limit nasal decongestants less than 3 days Wrap-Up I have advised the patient to call our office with any worsening or new symptoms. I spent a total of 20-29 minutes (exact time 28 mins) on the date of service in preparation, delivery, and documentation of the care provided to Kristyn Rich excluding any time spent in the performance of separately billed services. Rajiv Prescott, HARI, LEONEL [facility] documented in this encounter Plan of Treatment Upcoming Encounters Date Type Department Care Team (Late st Contact Info) Description 01/17/2024 10:30 AM EDT Office Visit Gynecology/Obstetrics [facility] [address] [place] [address] Clarisse Cordova CRNP [address] [place] [address] Health Maintenance Due Date Last Done Comments Hepatitis B (1 of 3 - 19+ 3-dose series) 2012 COVID-19 Vaccine ( season) 2023 07/02/2021, 09/14/2020, 08/24/2020 HPV/Co-Test 09/27/2023 Influenza Vaccine (FLU shot) (Season Ended) 2024 05/13/2021, 04/22/2020, 06/13/2019, Additional history exists Depression Screening 05/31/2024 05/31/2023 Cervical Cancer Screening 01/09/2026 Pap Smear 01/09/2026 01/09/2023, 08/0 11/2019, 10/19/2016, Additional history exists IUD 7-Year 02/18/2027 [...] PMS (premenstrual syndrome)- Primary Premenstrual tension syndromes Allergic rhinitis, unspecified seasonality, unspecified trigger documented in this encounter Care Teams Color Depositing Machine Tender Relationship Specialty Start Date End Date Saul Carreon MD [address] [facility] [place] [address] PCP - General Family Medicine 04/22/20 documented as of this encounter
--- OUTSIDE RECORDS SUMMARY | 2023-12-24 10:21 | External Medical Summary | Summary of Care ---
Author Name Unknown Organization [facility] Address [address] [place] [address] Phone [phone] Care Team Providers Care Neurology Technician Name Role Phone Saul Carreon MD Primary Care Provider [phone] Encounter Details Date Type Department Care Team (Late st Contact Info) Description 07/12/2023 Orders Only Outcomes Research Department [address] [place] [address] Latrice Price CHRA [employer] Other*[id number] Allergies Active Allergy Reactions Criticality Noted Date Comments Pollen 10/19/2016 documented as of this encounter (statuses as of 07/12/2023) Medications Medication Sig Dispensed Refills Start Date End Date Status Mirena (52 MG) 20 MCG/DAY Intrauterine Intrauterine Device (Levonorgestrel) Insert 1 Each into uterus once. 0 Active Multivitamin Gummies Womens Oral Tablet Chewable Take 2 Tablets by mouth daily. 0 Active Airborne Gummies Oral Tablet Chewable Take 2 Tablets by mouth daily. 0 Active FLUoxetine HCl 10 MG Oral Capsule (PROzac)Indications:P MS (premenstrual syndrome) Take 1 Capsule by mouth in the morning. 30 Capsule 11 05/31/2023 Active Jeplz-8-osib Ethyl Esters 1 GM Oral Capsule (Lovaza)Indications:H igh blood triglycerides Take 2 Capsules by mouth in the morning and 2 Capsules before bedtime. 120 Capsule 1 07/08/2023 Active documented as of this encounter (statuses as of 07/12/2023) Active Problems Problem Noted Date Diagnosed Date COVID-19 04/22/2020 Thalassemia, beta 05/16/2019 documented as of this encounter (statuses as of 07/12/2023) Resolved Problems Problem Noted Date Diagnosed Date [...] 06/13/2019 Christina Montanez RN 06/13/2019 nutrition Attending [facility] Due date letter given 05/16/2019 [...] as of this encounter (statuses as of 07/12/2023) Immunizations Name Administration Dates Next Due COVID-19 mRNA, LNP-s, No Pre serve, 2-Dose Series ([employer]) 07/02/2021,09/14/2020,08/24/2020 HPV Vaccine, 4-Valent 03/28/2006,11/26/2005,0406/2005 MMR - Measles/Mumps/Rubella Vaccine 11/16/2018 PPD 05/13/2021,09/18/2015,09/06/2015 [...] money to get more. Never true 05/31/2023 [place] Depression Scale Answer Date Recorded [place] Depression Scale Score 11 04/26/2020 The thought [...] on file documented as of this encounter Plan of Treatment Upcoming Encounters Date Type Department Care Team (Late st Contact Info) Description 07/30/2023 10:00 AM EST Office Visit Family Practice [facility] [address] [place] [address] Rajiv Prescott CRNP [address] [place] [address] 01/17/2024 10:30 AM EDT Office Visit Gynecology/Obstetrics [facility] [address] [place] [address] Clarisse Cordova CRNP [address] [place] [address] Scheduled Orders Name Type Priority Associated Diagnoses Orde r Schedule MYCODE SUBSEQUENT ADULT Lab Routine [employer] Other*[id number] Every 6 Months for 2 Occurrences starting 07/12/2023 until 07/31/2024 Health Maintenance Due Date Last Done Comments Hepatitis B (1 of 3 - 3-dose series) 1993 COVID-19 Vaccine ( season) 2023 07/02/2021, 09/14/2020, 08/24/2020 Influenza Vaccine [...] as of this encounter Visit Diagnoses Diagnosis [employer] Other*[id number] documented in this encounter Care Teams Neurology Technician Relationship Specialty Start Date End Date Saul Carreon MD [address] [place] [address] PCP - General Family Medicine 04/22/20 documented as of this encounter
--- OUTSIDE RECORDS SUMMARY | 2023-12-24 10:21 | External Medical Summary | Summary of Care ---
Author Name Unknown Organization [facility] Address [address] [place] [address] Phone [phone] Care Team Providers Care Plant Inspector Name Role Phone Saul Carreon MD Primary Care Provider [phone] Reason for Visit * Reason Onset Date Comments Medication Refill 12/12/2023 Encounter Details Date Type Department Care Team (Late st Contact Info) Description 12/12/2023 Refill Family Practice [facility] [address] [place] [address] Rajiv Prescott CRNP [address] [place] [address] PMS (premenstrual syndrome) Allergies Active Allergy Reactions Criticality Noted Date Comments Pollen 10/19/2016 documented as of this encounter (statuses as of 12/13/2023) Medications Medication Sig Dispensed Refills Start Date End Date Status Mirena (52 MG) 20 MCG/DAY Intrauterine Intrauterine Device (Levonorgestrel) Insert 1 Each into uterus once. Active Multivitamin Gummies Womens Oral Tablet Chewable Take 2 Tablets by mouth daily. Active Airborne Gummies Oral Tablet Chewable Take 2 Tablets by mouth daily. Active Nomut-4-lxxq Ethyl Esters 1 GM Oral Capsule (Lovaza)Indications:H igh blood triglycerides Take 2 Capsules by mouth in the morning and 2 Capsules before bedtime. 120 Capsule 1 09/02/2023 Active FLUoxetine HCl 20 MG Oral Capsule (PROzac)Indications:P MS (premenstrual syndrome) Take 1 Capsule by mouth in the morning. 90 Capsule 3 10/04/2023 Active documented as of this encounter (statuses as of 12/13/2023) Active Problems Problem Noted Date Diagnosed Date COVID-19 04/22/2020 Thalassemia, beta 05/16/2019 documented as of this encounter (statuses as of 12/13/2023) Resolved Problems Problem Noted Date Diagnosed Date [...] 06/13/2019 Christina Montanez RN 06/13/2019 nutrition Attending [facility] Due date letter given 05/16/2019 Christina [...] as of this encounter (statuses as of 12/13/2023) Immunizations Name Administration Dates Next Due COVID-19 mRNA, LNP-s, No Pre serve, 2-Dose Series ([employer]) 07/02/2021,09/14/2020,08/24/2020 HPV Vaccine, 4-Valent 03/28/2006,11/26/2005,06/2005 MMR - Measles/Mumps/Rubella Vaccine 11/16/2018 PPD 05/13/2021,09/18/2015,09/06/2015 [...] money to get more. Never true 05/31/2023 [place] Depression Scale Answer Date Recorded [place] Depression Scale Score 11 04/26/2020 The thought [...] encounter Miscellaneous Notes * Telephone Encounter - Jorge Luis August RPh - 12/13/2023 11:50 AM EDT Refused Prescriptions: Disp Refills FLUoxetine HCl 20 MG Oral Capsule (PROzac) 90 Cap*3 Sig: Take 1Capsule by mouth in the morning.Refused By: JORGE LUIS AUGUST for Refusal: Too soon------ Electronically signed by Jorge Luis August [facility] at 12/13/2023 11:50 AM EDT documented in this encounter Plan of Treatment Upcoming Encounters Date Type Department Care Team (Late st Contact Info) Description 01/17/2024 10:30 AM EDT Office Visit Gynecology/Obstetrics [facility] [address] [address] Clarisse Cordova CRNP [address] [place] [address] Health Maintenance Due Date Last Done Comments Hepatitis B (1 of 3 - 19+ 3-dose series) 2012 COVID-19 Vaccine (4 - season) 2023 07/02/2021, 09/14/2020, 08/24/2020 HPV/Co-Test 09/27/2023 Influenza Vaccine (FLU shot) (Season Ended) 2024 05/13/2021, 04/22/2020, 06/13/2019, Additional history exists Depression Screening 05/31/2024 05/31/2023 Cervical Cancer Screening 01/09/2026 Pap Smear 01/09/2026 01/09/2023, 11/2019, 10/19/2016, Additional history exists IUD 7-Year [...] this encounter Visit Diagnoses Diagnosis PMS (premenstrual syndrome) Premenstrual tension syndromes documented in this encounter Care Teams Plant Inspector Relationship Specialty Start Date End Date Saul Carreon MD [address] [place] [address] PCP - General Family Medicine 04/22/20 documented as of this encounter
[2023-12-24] MEDS: KETOROLAC 30 MG/ML VIAL IV ONE (10:25)
[2023-12-24 10:50] LABS: Mean Platelet Volume 10.1 fL (9.4-12.4); Platelet Count 310 K/uL (130-400)
[2023-12-24 10:52] LABS: Anisocytosis Present; Microcytosis Present; Polychromasia 1+; Tear Drop Cells 1+
--- NOTE | 2023-12-24 11:47 | History & Physical Report ---
Date of Service December 24, 2023 Assessment & Plan (1) Ureteropelvic junction calculus: (2) Hydronephrosis of right kidney: (3) Urinary tract infection: (4) Abdominal pain: (5) Nausea and vomiting: Plan Kristyn Rich is a 28y/o F with PMHx significant for beta thalassemia who presented to the ED for evaluation of abdominal pain + nausea/vomiting and was found to have a 4mm right ureteropelvic junction calculus with associated right hydronephrosis. Right Ureteropelvic Junction Calculus Hydronephrosis of Right Kidney Urinary Tract Infection (UTI) Admitting Imaging: * CTAP --> "4 mm right ureteropelvic junction calculus results in mild to moderate right hydronephrosis with delayed nephrogram and perinephric/periureteral fluid. No left hydronephrosis. A few small hyperdense foci within the left renal sinus which could reflect nonobstructing calculi or excreted contrast." -WBC 14.79, UA appears infected -No evidence of SESAR -Pt started on IV Zosyn in ED -Will transition to IV Rocephin -Urology saw pt in the ED -Pt will undergo stent placement today -Continue NPO status for now -Urine straining, monitor I&O's -Pt received 2L NSS in the ED -Will continue IVF w/ NSS for now Abdominal Pain Nausea & Vomiting -Pt c/o RLQ abdominal pain that radiates to the right side of her back -Pt received IV Toradol, fentanyl and morphine in the ED -Pt's pain had been very difficult to control per Dr. 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 Wu. Please see addendum. I spent a total of 50 minutes coordinating, documenting, and providing care for this patient excluding time spent in the performance of separately billed services. This included personally reviewing all current laboratories and imaging studies, medical reconciliation, outpatient chart review and discussion with specialists. This chart was completed in part utilizing Speech Voice Recognition Software. Grammatical errors, random word insertions, pronoun errors, and incomplete sentences are an occasional consequence of this system due to software limitations, ambient noise, and hardware issues. Any formal questions or concerns about the content, text, or information contained within the body of this dictation should be directly addressed to the provider for clarification. History of Present Illness Chief Complaint: Abdominal Pain Primary Care Provider: NO PCP Kristyn Rich is a 28y/o F with PMHx of beta thalassemia, anxiety, premenstrual syndrome and other problems listed below who presented to the ED for evaluation 2/2 abdominal pain with associated nausea/vomiting. History obtained from the patient and associated chart review. Patient reports having some mild, crampy RLQ abdominal pain yesterday. She took some Advil yesterday and didn't really think much of it. However, she woke up this morning with significant/unbearable RLQ abdominal pain. She did not take any pain medications today. States she could not get into a comfortable position and had multiple episodes of dry heaving, but never vomited. Denies any fevers, chills, SOB or chest pain. She last had something to eat yesterday morning; has not really been able to tolerate po intake since then. Denies any dysuria, hematuria or bowel habit changes. Currently experiencing 5/10 pain. Allergies Allergy/AdvReac Type Severity Reaction Status Date / Time pollen extracts Allergy Mild Sneezing Verified 12/24/23 13:03 Home Medications Medication Instructions Recorded Confirmed Type fluoxetine 20 mg capsule 20 mg PO QAM 12/24/23 12/24/23 History multivitamin with minerals-folic 1 tab PO QAM 12/24/23 12/24/23 History acid 200 mcg chewable tablet (Multivitamin Gummies) Past Med/Surg History Problem List Urinary tract infection Nausea and vomiting Abdominal pain Hydronephrosis of right kidney Ureteropelvic junction calculus Medical History Allergic rhinitis Premenstrual syndrome Beta thalassemia Anemia Surgical History H/O removal of cyst left leg, inner thigh Family History Mother Cancer breast and another site unknown by pt Asthma Hypertension Father Multiple sclerosis Social History Smoking Status: Never smoker Second Hand Exposure: No; Hx Alcohol Use: No Hx Substance Use: No Preferred Language: Maldivian Communication Ability: Effective Char Filter Tank Tender Required: No Beliefs That Will Affect Care: None marital status: Single Current Living Situation: Spouse current occupational status: employed Feels Safe at Home: Yes Assistive Devices: Glasses Review of Systems Review of Systems: At least ten systems reviewed and negative, except as noted in the HPI. Physical Exam Physical Exam: General: Patient sitting up in bed, conversing appropriately, NAD. A+Ox3, euthymic affect. HEENT: Normocephalic, atraumatic. PERRL, conjunctivae normal, anicteric sclerae. External ear and nose normal, oropharynx normal. Respiratory: Normal respiratory effort, lungs clear to auscultation, no wheeze, rales, rhonchi. No accessory muscle use. Cardiovascular: Regular rate, rhythm, no murmur, normal peripheral pulses, no B LE edema. Vessels: No JVD. Abdomen/GI: Normal bowel sounds, tender to palpation in RLQ. No rebounding or guarding. Extremities/Musculoskeletal: No cyanosis or clubbing, moves all extremities. Somewhat tender to palpation on R lower back. Neurologic: PERRL, EOMI, accommodation nl, no face palsy, no dysarthria, CN's II-XI not formally tested but appear intact bilaterally. Skin: No rashes, normal color, warm/dry. Results & Data Results & Data Vital Signs (Past 12 Hours) Vital Signs Temp Pulse Pulse Resp BP BP Pulse Ox 12/24/23 09:45 36.5 C 12/24/23 09:25 57 L 12/24/23 09:18 60 20 100 12/24/23 09:18 58 L 22 111/78 99 12/24/23 08:37 36.6 C 63 16 122/79 100 O2 Del Method 12/24/23 09:45 12/24/23 09:25 12/24/23 09:18 Room Air 12/24/23 09:18 Room Air 12/24/23 08:37 Room Air Laboratory Results Short CBC 12/24/23 Range/Units 09:06 WBC 14.79 H (4.8-10.8) K/ul Hgb 13.3 (12.0-16.0) g/dl Hct 41.8 (37.0-47.0) % Plt Count 310 (130-400) K/uL BMP 12/24/23 09:06 Sodium 140 Potassium 3.7 Chloride 108 H Carbon Dioxide 21 BUN 16 Creatinine 1.01 Glucose 106 H Calcium 9.9 Liver Function 12/24/23 Range/Units 09:06 Total Bilirubin 0.9 (0.2-1.0) mg/dl AST 22 (13-39) U/L ALT 14 (7-52) U/L Alkaline Phosphatase 63 (34-104) U/L Albumin 5.0 (3.4-5.0) gm/dl Urine 12/24/23 Range/Units 09:06 Urine Color Yellow Urine Appearance Turbid A (Clear) Urine pH >= 9.0 H (4.5-7.5) Ur Specific [employer] 1.017 (1.000-1.030) Urine Protein Trace H (Negative) Urine Glucose (UA) Negative (Negative) Diagnostic Findings Abdomen/Pelvis CT 12/24/23 09:43 CT OF THE ABDOMEN AND PELVIS WITH CONTRAST CLINICAL HISTORY: Right lower quadrant abdominal pain. COMPARISON STUDY: None. TECHNIQUE: Following IV administration of 93 mL of Optiray, axial images of the abdomen and pelvis were obtained from the lung bases to the proximal femurs. Images were reviewed in the axial, sagittal, and coronal planes. IV contrast was administered without complication. Automated exposure control was utilized for the study. A dose lowering technique was utilized adhering to the principles of ALARA. CT DOSE: 788.3 mGy.cm FINDINGS: Lung bases are unremarkable. No pneumatosis, free air or portal venous gas is present. Liver, spleen, adrenal glands and pancreas are unremarkable. A 4 mm right ureteropelvic junction calculus results in mild to moderate right hydronephrosis with delayed nephrogram perinephric and perirenal fluid. Hyperdense foci within the left renal sinus could reflect nonobstructing calculi or excreted contrast. 8 mm hypodense left renal lesion is too small to characterize but favors a cyst. The caliber and wall thickness of small and large bowel are normal. The appendix is normal. Intrauterine device is in place. There is trace fluid within the pelvis. There is no lymphadenopathy. Major vasculature is patent. IMPRESSION: 1. 4 mm right ureteropelvic junction calculus results in mild to moderate right hydronephrosis with delayed nephrogram and perinephric/periureteral fluid. 2. No left hydronephrosis. A few small hyperdense foci within the left renal sinus which could reflect nonobstructing calculi or excreted contrast. ACT 112: Negative or not required by law. Electronically signed by: Sonny Miller M.D. 12/24/2023 10:17 AM Medications Administered Discontinued Medications Fentanyl Citrate (Fentanyl Citrate Pf 100 Mcg/2 Ml Vial) 50 mcg IV NOW STA Stop: 12/24/23 08:54 Last Admin: 12/24/23 09:12 Dose: 50 mcg Documented By: WALLY Fentanyl Citrate (Fentanyl Citrate Pf 100 Mcg/2 Ml Vial) 50 mcg IV NOW STA Stop: 12/24/23 10:15 Last Admin: 12/24/23 10:25 Dose: Not Given Documented By: WALLY Sodium Chloride (Nss) 1,000 mls @ 999 mls/hr IV .Q1H1M ONE Stop: 12/24/23 09:53 Last Infusion: 12/24/23 10:06 Dose: Infused Documented By: Admin: 12/24/23 09:06 Dose: 999 mls/hr Documented By: WALLY Piperacillin Sod/Tazobactam Sod (Zosyn) 4.5 gm in 100 mls @ 200 mls/hr IV NOW ONE Stop: 12/24/23 10:12 Last Infusion: 12/24/23 10:28 Dose: Infused Documented By: Admin: 12/24/23 09:52 Dose: 200 mls/hr Documented By: WALLY Ioversol (Optiray 320 100ml) 93 ml IV ONCE ONE Stop: 12/24/23 10:05 Last Admin: 12/24/23 10:04 Dose: 93 ml Documented By: CHIQUITA Ketorolac Tromethamine (Ketorolac 30 Mg/Ml Vial) 30 mg IV NOW ONE Stop: 12/24/23 10:22 Last Admin: 12/24/23 10:25 Dose: 30 mg Documented By: WALLY Morphine Sulfate (Morphine Sulfate 4 Mg/Ml 1 Ml Carp\\Vial) 4 mg IV NOW STA Stop: 12/24/23 09:41 Last Admin: 12/24/23 09:43 Dose: 4 mg Documented By: WALLY Ondansetron HCl (Ondansetron Inj 2 Mg/Ml 2 Ml Vial) 4 mg IV NOW STA Stop: 12/24/23 08:54 Last Admin: 12/24/23 09:12 Dose: 4 mg Documented By: WALLY Code Status & VTE Plan Code Status FULL CODE VTE Prophylaxis Plan VTE Prophylaxis will be ordered: Yes Supervising Physician Co-Signing Physician Notes Patient was seen and examined independently at bedside. Chart reviewed. Case discussed with and agree with the documentation above. In summary, this is a 28 year old female who presented with right abd pain since yesterday and found to have 4 mm right UPJ calculus with some hydronephrosis, UA suggestive of UTI, but no SESAR, fever or chills. Given analgesics, ivf and zosyn in ED. Pain improved and comfortable during my encounter. Seen by urology and plan for cystoscopy with stent placement noted. Plan for IVF, iv ceftriaxone pending urine clx results, pain management, analgesics prn. Strain urine, send for stone analysis if stone passes prior to OR. VS, labs imaging reviewed, On exam, AAOx4, chest clear, heart sounds normal, abd benign, no edema, neurologically intact. Rest as per the note above. (3) Urinary tract infection Hematuria presence: without hematuria Urinary tract infection type: site unspecified Qualified Code(s): N39.0 - Urinary tract infection, site not specified (4) Abdominal pain Abdominal location: unspecified location Qualified Code(s): R10.9 - Unspecified abdominal pain (5) Nausea and vomiting Vomiting type: unspecified Qualified Code(s): R11.2 - Nausea with vomiting, unspecified
[2023-12-24] MEDS ORDERED: MIDAZOLAM HCL 1 MG/ML 2ML VIAL ONE (12:42)
[2023-12-24] MEDS ORDERED: fentaNYL citrate PF 100 MCG/2 ML VIAL ONE (12:42)
[2023-12-24] MEDS ORDERED: ONDANSETRON INJ 2 MG/ML 2 ML VIAL ONE (12:42)
[2023-12-24] MEDS ORDERED: DEXAMETHASONE SOD INJ 4 MG/ML VIAL ONE (12:42)
[2023-12-24] MEDS ORDERED: LIDOCAINE 2% 2 ML VIAL/AMP(20MG/ML) INFIL ONE (12:42)
[2023-12-24] MEDS ORDERED: PROPOFOL IV EMULSION 10 MG/ML 20 ML VIAL IV ONE ×2 (12:42→13:49)
--- NOTE | 2023-12-24 12:57 | Urology Consultation ---
<Statement entered by Joshua Wolfe MD - 12/24/23 13:13> I have seen and discussed Ms. Rich's case with LEONEL Jay and agree with the above documentation. Clinical picture concerning for right ureteral stone with possible UTI. Will plan on cystoscopy, right retrograde pyelogram and right ureteral stent placement. We reviewed risks of bleeding, infection, injury to urinary tract, need for additional procedures. She expressed understanding and would like to proceed. -Joshua Wolfe MD. Date of Consultation December 24, 2023 Assessment & Plan (1) Ureteropelvic junction calculus: (2) Hydronephrosis of right kidney: (3) Abdominal pain: (4) Nausea and vomiting: Plan 28yo/F admitted with severe right sided abdominal pain with associated nausea and vomiting and concern for infection. We reviewed her CT findings, specifically the 4mm right ureteropelvic junction calculus with associated right hydronephrosis. We discussed acute stone management with cystoscopy and ureteral stent placement. Ureteral stents were discussed as well as postoperative issues and pain management. She is aware a second procedure would be needed for stone treatment. Risks and benefits were discussed. All questions were answered. Patient would like to proceed. Will plan to proceed to OR today for cystoscopy, right retrograde pyelogram, right ureteral stent placement. Risks and benefits to be reviewed with patient by Dr. Wolfe. Keep NPO. Urine culture pending. She received IV Zosyn. Follow culture. Continue supportive care. Urology to follow. History of Present Illness Attending Physician: Ed uW MD History of Present Illness 28 year old female with a PMHx significant for beta thalassemia who presented to the ED today for evaluation of severe right sided abdominal pain, nausea, and vomiting and was found to have a 4mm right ureteropelvic junction calculus with associated right hydronephrosis. In the ED, she was afebrile and hemodynamically stable. Labs showing a leukocytosis of 14.79 and creatinine 1.01. Urinalysis 2+ LE, 2150 WBC, 610 RBC, 1+ bacteria. CT abdomen pelvis de monstrated a 4 mm obstructing right UPJ stone. ED course: Zofran, fentanyl, morphine, Zosyn, ketorolac. Patient admitted to medicine service for pain management. CT abdomen pelvis- 1. 4 mm right ureteropelvic junction calculus results in mild to moderate right hydronephrosis with delayed nephrogram and perinephric/periureteral fluid. 2. No left hydronephrosis. A few small hyperdense foci within the left renal sinus which could reflect nonobstructing calculi or excreted contrast. Patient seen at bedside in the ED. Awake, resting in bed on arrival. No acute distress. at bedside. She denies prior history of stones. Allergies Allergy/AdvReac Type Severity Reaction Status Date / Time pollen extracts Allergy Mild Sneezing Verified 12/24/23 13:03 Home Medications Medication Instructions Recorded Confirmed Type fluoxetine 20 mg capsule 20 mg PO QAM 12/24/23 12/24/23 History multivitamin with minerals-folic 1 tab PO QAM 12/24/23 12/24/23 History acid 200 mcg chewable tablet (Multivitamin Gummies) Patient History Medical History Allergic rhinitis Premenstrual syndrome Beta thalassemia Anemia Surgical History H/O removal of cyst left leg, inner thigh Family History Mother Cancer breast and another site unknown by pt Asthma Hypertension Father Multiple sclerosis Social History Smoking Status: Never smoker Second Hand Exposure: No; Hx Alcohol Use: No Hx Substance Use: No Preferred Language: Wallisian Communication Ability: Effective Warp Drawer Required: No Beliefs That Will Affect Care: None marital status: Single Current Living Situation: Spouse current occupational status: employed Feels Safe at Home: Yes Assistive Devices: Glasses Review of Systems Review of Systems: All systems reviewed & are unremarkable except as noted in HPI & below Physical Exam Constitutional: well developed and well nourished; no acute distress Neck: normal visual inspection Respiratory: normal respiratory effort; no respiratory distress and no labored breathing Musculoskeletal: Head/Neck/Chest: normocephalic Skin: No visible rashes or lesions to exposed skin areas Neurologic: moves all extremities and awake Psychiatric: A+Ox3, euthymic affect Results & Data Vital Signs (Past 12 Hours) Vital Signs Temp Pulse Pulse Resp BP BP Pulse Ox 12/24/23 09:45 36.5 C 12/24/23 09:25 57 L 12/24/23 09:18 60 20 100 12/24/23 09:18 58 L 22 111/78 99 12/24/23 08:37 36.6 C 63 16 122/79 100 O2 Del Method 12/24/23 09:45 12/24/23 09:25 12/24/23 09:18 Room Air 12/24/23 09:18 Room Air 12/24/23 08:37 Room Air PG Care Time/CCT Total # of Minutes Spent Total Time Spent with Patient: Total time spent is greater than 50% in coordination of care (as documented) at patient's floor/unit and/or counseling patient: Coding Level of Care Code 67190 IN/OBS CONSULT LVL 4,60M Diagnoses Ureteropelvic junction calculus N20.1 Hydronephrosis of right kidney N13.30 Abdominal pain, unspecified abdominal location R10.9 Abdominal location: unspecified location Nausea and vomiting, unspecified vomiting type R11.2 Vomiting type: unspecified (3) Abdominal pain Abdominal location: unspecified location Qualified Code(s): R10.9 - Unspecified abdominal pain (4) Nausea and vomiting Vomiting type: unspecified Qualified Code(s): R11.2 - Nausea with vomiting, unspecified
--- NOTE | 2023-12-24 13:19 | Anesthesiology Consultation ---
Date of Service December 24, 2023 Assessment & Plan Chart Review Chart Review: Acceptable Risk for Surgery and Patient NOT seen in Pre Admission Testing Consults Requested none ASA ASA2E Proposed Anesthesia Anesthesia Type: MAC Risk / Benefits Reviewed With: PT / POA / Parent / Guardian, Accepts Plan and Informed Consent Obtained History Surgery Operation Date: 12/24/23 10:20 Proposed Procedures p Cystoscopy, Right Retrograde Pyelogram, Stent Placement - Joshua Wolfe MD Height/Weight Height: 5 ft 3 in Weight: 70.6 kg Allergies Allergy/AdvReac Type Severity Reaction Status Date / Time pollen extracts Allergy Mild Sneezing Verified 12/24/23 13:03 Medications Home Medications Medication Instructions Recorded Confirmed Last Taken fluoxetine 20 mg capsule 20 mg PO QAM 12/24/23 12/24/23 12/23/23 multivitamin with minerals-folic 1 tab PO QAM 12/24/23 12/24/23 12/23/23 acid 200 mcg chewable tablet (Multivitamin Gummies) NPO Date Last Intake of Fluids: 12/23/23 Time Last Intake of Fluids: 19:30 Date Last Intake of Solids: 12/23/23 Time Last Intake of Solids: 19:00 Past Medical History Medical History Allergic rhinitis Premenstrual syndrome Beta thalassemia Anemia anxiety Exercise / Class Metabolic Activity II 4-5 Yardwork/Stairs/Walk up hill Past Family History Family History Mother Cancer breast and another site unknown by pt Asthma Hypertension Father Multiple sclerosis Past Surgical History Surgical History H/O removal of cyst left leg, inner thigh Past Anesthesia History No Hx of Anesthesia Complications and No Family Hx of Anesthesia Complications History of PONV No Hx of PONV and No Hx of Motion Sickness Social History Smoking Status: Never smoker Hx Alcohol Use: No Hx Substance Use: No Physical Exam Vital Signs Last Vital Signs Temp 37 C 12/24/23 13:14 Pulse 55 L 12/24/23 13:14 Resp 18 12/24/23 13:14 BP 116/83 12/24/23 13:14 Pulse Ox 100 12/24/23 13:14 O2 Del Method Room Air 12/24/23 13:14 Constitutional no acute distress ENMT Mouth: no dentition abnormality Thyromental Distance: < 3.5 Finger Breadths Mallampati Class: II Neck normal visual inspection and trachea midline; neck extension not limited Respiratory normal respiratory effort Auscultation: lungs clear to auscultation bilaterally Cardiovascular Rate/Rhythm: regular rate and regular rhythm Heart Sounds: no murmur Vessels: no carotid bruit Musculoskeletal Spine: normal cervical ROM and no pain with cervical ROM Extremities: extremities normal to inspection; full ROM of extremities Neurologic moves all extremities Motor/Sensory: no sensory deficit Psychiatric Orientation: alert and oriented x 3 Testing Laboratory Results 12/24/23 09:06 12/24/23 09:06 Urine Color Yellow 12/24/23 09:06 Urine Appearance Turbid (Clear) A 12/24/23 09:06 Urine pH >= 9.0 (4.5-7.5) H 12/24/23 09:06 Ur Specific [place] 1.017 (1.000-1.030) 12/24/23 09:06 Urine Protein Trace (Negative) H 12/24/23 09:06 Urine Glucose (UA) Negative (Negative) 12/24/23 09:06 Urine Ketones Negative (Negative) 12/24/23 09:06 Urine Nitrite Negative (Negative) 12/24/23 09:06 Ur Leukocyte Esterase 2+ (Negative) H 12/24/23 09:06 Urine WBC (Auto) 21-50 /hpf (0-5) H 12/24/23 09:06 Urine RBC (Auto) 6-10 /hpf (0-2) H 12/24/23 09:06 U Hyaline Cast (Auto) 0-2 /lpf (0-2) 12/24/23 09:06 U Epithel Cells (Auto) 11-20 /hpf (0-2) H 12/24/23 09:06 Urine Bacteria (Auto) 1+ (None Seen) H 12/24/23 09:06 12/24/23 09:18 POC Ur Test NEG
[2023-12-24] MEDS ORDERED: ePHEDrine sulfate 50 MG/ML AMP IV PRN (13:22)
[2023-12-24] MEDS ORDERED: PROMETHAZINE HCL 6.25 MG in SODIUM CHLORIDE 0.9% 50 ML IV PRN (13:22)
[2023-12-24] MEDS ORDERED: fentaNYL citrate PF 100 MCG/2 ML VIAL IV PRN (13:22)
[2023-12-24] MEDS ORDERED: ONDANSETRON INJ 2 MG/ML 2 ML VIAL IV PRN ×2 (13:22→15:20)
[2023-12-24] MEDS ORDERED: FLUMAZENIL 0.1 MG/1 ML 10 ML VIAL IV PRN (13:22)
[2023-12-24] MEDS ORDERED: HYDROmorphone INJ 1 MG/ML SYRINGE IV PRN (13:22)
[2023-12-24] MEDS ORDERED: ATROPINE SULFATE 0.1 MG/ML 10ML SYR IV PRN (13:22)
[2023-12-24] MEDS ORDERED: NALOXONE HCL 0.4 MG/1 ML VIAL/CARP IV PRN (13:22)
[2023-12-24] MEDS: ONDANSETRON INJ 2 MG/ML 2 ML VIAL ONE (13:23)
[2023-12-24] MEDS: LACTATED RINGER'S 1,000 ML IV SCH (13:24)
[2023-12-24] MEDS: DIATRIZOATE MEGLUMINE 30% 100ML VIAL INSTIL ONE (13:48)
--- NOTE | 2023-12-24 13:56 | Operative Report ---
[facility] Post Operative Report Pre & Post Diagnosis Operation Date: 12/24/23 10:20 Pre-Op Diagnosis: 1. Ureteropelvic junction calculus 2. Hydronephrosis of right kidney Post-Op Diagnosis: 1. Ureteropelvic junction calculus 2. Hydronephrosis of right kidney I identified the patient and participated in the time-out.: Yes Procedure Operation Date: 12/24/23 10:20 Actual Procedures p Cystoscopy, Right Retrograde Pyelogram, Right ureteral stent Placement - Joshua Wolfe MD Surgeon Joshua Wolfe MD Wood Gouger None Estimated Blood Loss 0 Findings Consistent with Post-Op Diagnosis Specimens None Drains 6 Nepalese by 24 cm double-J ureteral stent in the right ureter Anesthesia Type MAC Complications none Disposition Accompanied Patient To Recovery: Yes Disposition: Recovery Room Indications This is a 28-year-old female who presented to the emergency department on 12/24/2023. She was found to have a right ureteral stone. Urinalysis was suspicious for infection. She is brought to the OR for right ureteral stent placement. Description of Procedure The patient was identified in the holding area and informed consent was confirmed. She was marked on the right side, then was taken to the operating room where anesthesia was initiated. She was placed in the dorsal lithotomy position with all pressure points appropriately padded. She was prepped and draped in the usual sterile fashion and a preoperative timeout was performed. A well-lubricated cystoscope was inserted per urethra and panendoscopy was performed. The urethra was normal in appearance. The bladder was of normal size with ureteral orifices in orthotopic position. The right ureteral orifice was identified and cannulated with a 5 Nepalese open- ended catheter. Retrograde pyelogram was performed. The right kidney was actually already filled with contrast from her CT scan earlier. The left kidney and ureter appeared to be draining well but also had contrast from her earlier scan. A 0.038" ZIPwire was advanced to the level of the right kidney under fluoroscopic guidance. Over the wire, a 6 [place]alese x 24 centimeter double-J ureteral stent was advanced. When the wire was removed, the proximal curl was visualized in the kidney with x-ray, and the distal curl visualized in the bladder with the cystoscope. There was good drainage of contrast from the right kidney. At this point the bladder was drained and all instrumentation was removed. The patient was then awakened from anesthesia and was brought to the PACU in stable condition. I attest to the content of the Intraoperative Record and any orders documented therein. Any exceptions are noted below.
--- NOTE | 2023-12-24 14:08 | Fluoroscopy Report ---
FL retrograde includes kub CLINICAL HISTORY: STENT TECHNIQUE: 1 views were obtained with the C-arm in the OR with the above procedure. Total fluoroscopy time was 7.1 seconds. Radiation dose was 1.08 mGy. Comparison: Comparison is made to CT abdomen pelvis 12/16/2023 FINDINGS/IMPRESSION: Intraoperative images were obtained of right stent placement retrograde pyelogra m. In the final images, the stent is in satisfactory position. Please correlate with intraoperative fluoroscopy and operative report. ACT 112: Negative or not required by law. Electronically signed by: Vince Gregorio M.D. 12/24/2023 2:07 PM
--- NOTE | 2023-12-24 14:29 | Anesthesiology Progress Note ---
Date of Service December 24, 2023 Anesthesia Post Procedure Vital Signs Vital Signs: Temp Pulse Pulse Pulse Resp BP BP 12/24/23 14:20 55 L 20 98/63 L 12/24/23 14:10 61 21 98/63 L 12/24/23 13:59 36.8 C 72 12 91/58 L 12/24/23 13:14 37 C 55 L 18 116/83 12/24/23 09:45 36.5 C 12/24/23 09:25 57 L 12/24/23 09:18 60 20 12/24/23 09:18 58 L 22 111/78 12/24/23 08:37 36.6 C 63 16 122/79 Pulse Ox O2 Del Method O2 Flow Rate 12/24/23 14:20 100 Oxymask 3 12/24/23 14:10 100 Oxymask 5 12/24/23 13:59 99 Oxymask 7 12/24/23 13:14 100 Room Air 12/24/23 09:45 12/24/23 09:25 12/24/23 09:18 100 Room Air 12/24/23 09:18 99 Room Air 12/24/23 08:37 100 Room Air Pain Intensity Abdomen: Pain Intensity: 9 Transfer of Care Handoff Completed per policy Notes Mental Status: alert / awake / arousable Patient Amnestic to Procedure: Yes Nausea / Vomiting: adequately controlled Pain: adequately controlled Airway Patency, RR, SpO2: stable & adequate BP & HR: stable & adequate Hydration State: stable & adequate Anesthetic Complications: no major complications apparent
[2023-12-24] MEDS ORDERED: POLYETHYLENE (MIRALAX) 17 GM PACK PO PRN (15:20)
[2023-12-24] MEDS ORDERED: ALUMINUM/MAGNESIUM SUSP 30 ML UDC PO PRN (15:20)
[2023-12-24] MEDS: SODIUM CHLORIDE 0.9% 1,000 ML IV SCH (16:02)
[2023-12-24] MEDS: oxyCODONE HCL IR 5 MG TAB (IMMEDIATE RELEASE) PO PRN (16:03)
[2023-12-24] MEDS: KETOROLAC TROMETHAMINE 15 MG/ML VIAL IV PRN (16:04)
[2023-12-24] MEDS: cefTRIAXone SODIUM 2,000 MG/50 ML BAG IV SCH (16:05)
[2023-12-24] MEDS: ACETAMINOPHEN 325 MG TAB PO PRN (17:32)
[2023-12-25] MEDS: CEROVITE ADV FORMULA TAB PO SCH (08:21)
[2023-12-25] MEDS: FLUoxetine HCL 20 MG CAP PO SCH (08:21)
[2023-12-25] MEDS: MAGNESIUM HYDROXIDE SUSP 30 ML UDC PO PRN (08:21)
--- NOTE | 2023-12-25 09:10 | Urology Progress Note ---
Date of Service December 25, 2023 Assessment & Plan (1) Hydronephrosis of right kidney: (2) Ureteropelvic junction calculus: Plan Overall, she is recovering appropriately s/p ureteral stent placement on 12/23. She is not currently showing any signs of systemic infection. Urine culture still pending, although would be reasonable to empirically de- escalate antibiotics to oral option. If she does well with this, I think she could be discharged home. No plan for additional intervention during this admission, urology will sign off for now and coordinate outpatient follow-up. Please call with any questions or concerns. Admission and Anticipated Discharge Date Admission Date: December 24, 2023 Subjective Feeling well, denies any significant flank pain Not having pain from the stent Tolerating a diet, no nausea or vomiting Urine culture pending, remains on ceftriaxone Physical Exam Physical Exam: Well-appearing, NAD Results & Data Vital Signs (Past 12 Hours) Vital Signs Temp Pulse Resp BP Pulse Ox O2 Del Method 12/25/23 06:59 36.7 C 66 16 109/71 99 Room Air 12/25/23 03:24 36.6 C 48 L 19 101/66 97 Room Air 12/24/23 23:04 36.6 C 75 16 106/67 97 Room Air PG Care Time/CCT Total # of Minutes Spent Total Time Spent with Patient: Total time spent is greater than 50% in coordination of care (as documented) at patient's floor/unit and/or counseling patient: Coding Level of Care Code 10293 SUB INP/OBS CARE 1/25MIN Diagnoses Hydronephrosis of right kidney N13.30 Ureteropelvic junction calculus N20.1
[2023-12-25 09:41] LABS: Basophils # (auto) 0.02 K/uL (0.00-0.20); Basophils % (auto) 0.2 %; Eosinophils # (auto) 0.08 K/uL (0.00-0.50); Eosinophils % (auto) 0.6 %; Hematocrit (blood only) 35.3 % (37.0-47.0); Hemoglobin 11.3 g/dl (12.0-16.0); Immature Granulocytes # (auto) 0.05 K/uL (0.01-0.20); Immature Granulocytes % (auto) 0.4 %; Lymphocytes # (auto) 2.18 K/uL (1.20-3.40); Lymphocytes % (auto) 17.7 %; Mean Corpuscular Volume 68.8 fL (80.0-100.0); Monocytes # (auto) 0.58 K/uL (0.11-0.59); Monocytes % (auto) 4.7 %; Neutrophils % (auto) 76.4 %; RDW Standard Deviation 49.9 fL (36.4-46.3); Red Blood Count 5.13 M/uL (4.20-5.40); White Blood Count 12.31 K/ul (4.8-10.8)
[2023-12-25 10:00] LABS: Mean Platelet Volume 10.2 fL (9.4-12.4); Platelet Count 257 K/uL (130-400)
[2023-12-25 10:01] LABS: BUN Creatinine Ratio 17.9 (10-20); Calcium 8.7 mg/dl (8.6-10.3); Creatinine Clr Calc Pharmacy 99.4 ml/min; Est GFR (African American) 118.2 ml/min; Potassium 3.7 mmol/L (3.5-5.1)
[2023-12-25 10:05] LABS: Anisocytosis Present; Microcytosis Present; Polychromasia 1+; Tear Drop Cells 1+
--- NOTE | 2023-12-25 19:20 | Discharge Summary ---
Discharge Summary Date of Service December 25, 2023 Principal Dx & Hospital Course #1 = Principal Diagnosis (1) Ureteropelvic junction calculus: (2) Hydronephrosis of right kidney: (3) Urinary tract infection: (4) Abdominal pain: (5) Nausea and vomiting: Plan per admitting service notes with addendum: Kristyn Rich is a 28y/o F with PMHx significant for beta thalassemia who presented to the ED for evaluation of abdominal pain + nausea/vomiting and was found to have a 4mm right ureteropelvic junction calculus with associated right hydronephrosis. Right Ureteropelvic Junction Calculus Hydronephrosis of Right Kidney Urinary Tract Infection (UTI) Admitting Imaging: * CTAP --> "4 mm right ureteropelvic junction calculus results in mild to moderate right hydronephrosis with delayed nephrogram and perinephric/periureteral fluid. No left hydronephrosis. A few small hyperdense foci within the left renal sinus which could reflect nonobstructing calculi or excreted contrast." Urologist consulted s/p Cystoscopy, Right Retrograde Pyelogram, Right ureteral stent Placement - Joshua Cartwright MD Urine culture: pending feeling better overall discharge on Cefdinir 300mg BID x 10 days PRN Oxycodone ff up with Urologist in 1 week Abdominal Pain Nausea & Vomiting -Pt c/o RLQ abdominal pain that radiates to the right side of her back -Pt received IV Toradol, fentanyl and morphine in the ED -Pt's pain had been very difficult to control per Dr. 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 History obtained from the patient and associated chart review. Patient reports having some mild, crampy RLQ abdominal pain yesterday. She took some Advil yesterday and didn't really think much of it. However, she woke up this morning with significant/unbearable RLQ abdominal pain. She did not take any pain medications today. States she could not get into a comfortable position and had multiple episodes of dry heaving, but never vomited. Denies any fevers, chills, SOB or chest pain. She last had something to eat yesterday morning; has not really been able to tolerate po intake since then. Denies any dysuria, hematuria or bowel habit changes. Currently experiencing 5/10 pain. Admission Exam Per Admitting Provider General: Patient sitting up in bed, conversing appropriately, NAD. A+Ox3, euthymic affect. HEENT: Normocephalic, atraumatic. PERRL, conjunctivae normal, anicteric sclerae. External ear and nose normal, oropharynx normal. Respiratory: Normal respiratory effort, lungs clear to auscultation, no wheeze, rales, rhonchi. No accessory muscle use. Cardiovascular: Regular rate, rhythm, no murmur, normal peripheral pulses, no BLE edema. Vessels: No JVD. Abdomen/GI: Normal bowel sounds, tender to palpation in RLQ. No rebounding or guarding. Extremities/Musculoskeletal: No cyanosis or clubbing, moves all extremities. Somewhat tender to palpation on R lower back. Neurologic: PERRL, EOMI, accommodation nl, no face palsy, no dysarthria, CN's II-XI not formally tested but appear intact bilaterally. Skin: No rashes, normal color, warm/dry. Discharge Exam General- oriented x 3, not in distress, speaks in sentences with no effort or accessory muscle use Eyes- anicteric Neck- no JVD Lungs- clear breath sounds bilaterally, no rales/wheezes Heart- normal rate, regular rhythm; no murmurs Abdomen- normal bowel sounds, nondistended, soft, nontender no CVA tenderness Extremities- no pretibial edema, no calf tenderness Neuro- alert, oriented x 3; no gross focal neurologic deficits Skin- warm & dry Updated Medication List Medication Instructions Recorded Confirmed Type fluoxetine 20 mg capsule 20 mg PO QAM 12/24/23 12/24/23 History multivitamin with minerals-folic 1 tab PO QAM 12/24/23 12/24/23 History acid 200 mcg chewable tablet (Multivitamin Gummies) Lactobacillus acidoph-L.bulgaricus 1 tab PO DAILY #30 tabs 12/25/23 Rx 1 million cell tablet (Floranex) cefdinir 300 mg capsule 300 mg PO BID 10 days #20 caps 12/25/23 Rx oxycodone 5 mg tablet 5 mg PO Q6H PRN severe pain #8 tabs 12/25/23 Rx Hospital Stay Data Consultations 12/24/23 11:37 Consult Urology Routine ED Decision to Admit Stat Procedures Performed Operation Date: 12/24/23 10:20 Actual Procedures p Cystoscopy, Right Retrograde Pyelogram, Right Stent Placement(Right) - Joshua Cartwright MD Diagnostic Imagining Performed Laboratory Results WBC 12.31 K/ul (4.8-10.8) H 12/25/23 09:18 RBC 5.13 M/uL (4.20-5.40) 12/25/23 09:18 Hgb 11.3 g/dl (12.0-16.0) L 12/25/23 09:18 Hct 35.3 % (37.0-47.0) L 12/25/23 09:18 MCV 68.8 fL (80.0-100.0) L 12/25/23 09:18 MCH 22.0 pg (25.0-34.0) L 12/25/23 09:18 MCHC 32.0 g/dL (32.0-36.0) 12/25/23 09:18 RDW Std Deviation 49.9 fL (36.4-46.3) H 12/25/23 09:18 RDW Coeff of Sandy 21.0 % (11.5-14.5) H 12/25/23 09:18 Plt Count 257 K/uL (130-400) 12/25/23 09:18 MPV 10.2 fL (9.4-12.4) 12/25/23 09:18 Immature Gran % (Auto) 0.4 % 12/25/23 09:18 Neut % (Auto) 76.4 % 12/25/23 09:18 Lymph % (Auto) 17.7 % 12/25/23 09:18 [place] % (Auto) 4.7 % 12/25/23 09:18 Eos % (Auto) 0.6 % 12/25/23 09:18 Baso % (Auto) 0.2 % 12/25/23 09:18 Neut # (Auto) 9.40 K/uL (1.40-6.50) H 12/25/23 09:18 Lymph # (Auto) 2.18 K/uL (1.20-3.40) 12/25/23 09:18 [place] # (Auto) 0.58 K/uL (0.11-0.59) 12/25/23 09:18 Eos # (Auto) 0.08 K/uL (0.00-0.50) 12/25/23 09:18 Baso # (Auto) 0.02 K/uL (0.00-0.20) 12/25/23 09:18 Immature Gran # (Auto) 0.05 K/uL (0.01-0.20) 12/25/23 09:18 Polychromasia 1+ 12/25/23 09:18 Anisocytosis Present 12/25/23 09:18 Microcytosis Present 12/25/23 09:18 Tear Drop Cells 1+ 12/25/23 09:18 Sodium 140 mmol/L (136-145) 12/25/23 09:18 Potassium 3.7 mmol/L (3.5-5.1) 12/25/23 09:18 Chloride 109 mmol/L (98-107) H 12/25/23 09:18 Carbon Dioxide 24 mmol/L (21-32) 12/25/23 09:18 Anion Gap 7 (3-11) 12/25/23 09:18 BUN 14 mg/dl (6-23) 12/25/23 09:18 Creatinine 0.78 mg/dl (0.6-1.2) 12/25/23 09:18 Est Cr Clr Drug Dosing 99.4 ml/min 12/25/23 09:18 Est GFR ( Amer) 118.2 ml/min 12/25/23 09:18 Est GFR (Non-Af Amer) 102.0 ml/min 12/25/23 09:18 BUN/Creatinine Ratio 17.9 (10-20) 12/25/23 09:18 Glucose 130 mg/dl (70-99(Fasting)) H 12/25/23 09:18 Calcium 8.7 mg/dl (8.6-10.3) 12/25/23 09:18 Total Bilirubin 0.9 mg/dl (0.2-1.0) 12/24/23 09:06 AST 22 U/L (13-39) 12/24/23 09:06 ALT 14 U/L (7-52) 12/24/23 09:06 Alkaline Phosphatase 63 U/L (34-104) 12/24/23 09:06 Total Protein 8.4 gm/dl (6.0-8.3) H 12/24/23 09:06 Albumin 5.0 gm/dl (3.4-5.0) 12/24/23 09:06 Globulin 3.4 gm/dl (2.5-4.0) 12/24/23 09:06 Albumin/Globulin Ratio 1.5 (0.9-2) 12/24/23 09:06 Lipase 35 U/L (11-82) 12/24/23 09:06 HCG, Qual Negative (Negative) 12/24/23 09:06 Urine Color Yellow 12/24/23 09:06 Urine Appearance Turbid (Clear) A 12/24/23 09:06 Urine pH >= 9.0 (4.5-7.5) H 12/24/23 09:06 Ur Specific Vader 1.017 (1.000-1.030) 12/24/23 09:06 Urine Protein Trace (Negative) H 12/24/23 09:06 Urine Glucose (UA) Negative (Negative) 12/24/23 09:06 Urine Ketones Negative (Negative) 12/24/23 09:06 Urine Blood Negative (Negative) 12/24/23 09:06 Urine Nitrite Negative (Negative) 12/24/23 09:06 Urine Bilirubin Negative (Negative) 12/24/23 09:06 Urine Urobilinogen Negative (Negative) 12/24/23 09:06 Ur Leukocyte Esterase 2+ (Negative) H 12/24/23 09:06 Urine WBC (Auto) 21-50 /hpf (0-5) H 12/24/23 09:06 Urine RBC (Auto) 6-10 /hpf (0-2) H 12/24/23 09:06 U Hyaline Cast (Auto) 0-2 /lpf (0-2) 12/24/23 09:06 U Epithel Cells (Auto) 11-20 /hpf (0-2) H 12/24/23 09:06 Urine Bacteria (Auto) 1+ (None Seen) H 12/24/23 09:06 POC Ur Test NEG (NEG) 12/24/23 09:18 Impressions Retrograde Pyelogram 12/24/23 00:00 FL retrograde includes kub CLINICAL HISTORY: STENT TECHNIQUE: 1 views were obtained with the C-arm in the OR with the above procedure. Total fluoroscopy time was 7.1 seconds. Radiation dose was 1.08 mGy. Comparison: Comparison is made to CT abdomen pelvis 12/16/2023 FINDINGS/IMPRESSION: Intraoperative images were obtained of right stent placement retrograde pyelogram. In the final images, the stent is in satisfactory position. Please correlate with intraoperative fluoroscopy and operative report. ACT 112: Negative or not required by law. Electronically signed by: Vince Gregorio M.D. 12/24/2023 2:07 PM Abdomen/Pelvis CT 12/24/23 09:43 CT OF THE ABDOMEN AND PELVIS WITH CONTRAST CLINICAL HISTORY: Right lower quadrant abdominal pain. COMPARISON STUDY: None. TECHNIQUE: Following IV administration of 93 mL of Optiray, axial images of the abdomen and pelvis were obtained from the lung bases to the proximal femurs. Images were reviewed in the axial, sagittal, and coronal planes. IV contrast was administered without complication. Automated exposure control was utilized for the study. A dose lowering technique was utilized adhering to the principles of ALARA. CT DOSE: 788.3 mGy.cm FINDINGS: Lung bases are unremarkable. No pneumatosis, free air or portal venous gas is present. Liver, spleen, adrenal glands and pancreas are unremarkable. A 4 mm right ureteropelvic junction calculus results in mild to moderate right hydronephrosis with delayed nephrogram perinephric and perirenal fluid. Hyperdense foci within the left renal sinus could reflect nonobstructing calculi or excreted contrast. 8 mm hypodense left renal lesion is too small to characterize but favors a cyst. The caliber and wall thickness of small and large bowel are normal. The appendix is normal. Intrauterine device is in place. There is trace fluid within the pelvis. There is no lymphadenopathy. Major vasculature is patent. IMPRESSION: 1. 4 mm right ureteropelvic junction calculus results in mild to moderate right hydronephrosis with delayed nephrogram and perinephric/periureteral fluid. 2. No left hydronephrosis. A few small hyperdense foci within the left renal sinus which could reflect nonobstructing calculi or excreted contrast. ACT 112: Negative or not required by law. Electronically signed by: Sonny Miller M.D. 12/24/2023 10:17 AM Pending Results Patient Have Any Pending Studies at Discharge: Yes Discharge Instructions Given to Patient (Per Discharging Provider) PLEASE REFER TO YOUR NEW MEDICATION LIST AND FOLLOW INSTRUCTIONS CAREFULLY. YOUR NEW MEDICATIONS INCLUDE: Cefdinir-antibiotic for urinary tract infection Oxycodone-narcotic medication as needed for severe pain -No driving while taking this medication You can take Tylenol 650 mg every 6 hours as needed for mild to moderate pain. Do not take more than 3000 mg of Tylenol in 24 hours. You can take ibuprofen 400 mg every 6 hours as needed for mild to moderate pain. Please take a probiotic for at least 2 weeks while on antibiotic. Drink plenty of water 7-8 glasses/day. You need to follow-up with a urologist Dr. Cartwright in 1 week for removal of the uretetal stent. PLEASE CALL YOUR PRIMARY CARE PHYSICIAN OR RETURN TO THE ER IF WITH WORSENING OF SYMPTOMS, INCLUDING Worsening abdominal/side/back pain, fevers or chills, problems with urination, bloody urine, nausea or vomiting, etc. FOLLOW UP WITH UROLOGIST DR. CARTWRIGHT IN 1 WEEK. CONTACT INFORMATION OUTLINED ABOVE. FOLLOW UP WITH PRIMARY CARE PHYSICIAN OUTLINED ABOVE. Total Time Total Time Spent Total Time Spent (In Minutes): 45 minutes
== END 2023-12-25 13:34 | disposition home or self-care (01) | DRG 661 ==
LOC: ED 08:32 → SUATTDRO 11:54 → EDINP 11:54 → 3N 15:16